=== PATIENT | female | born 1965 | race Caucasian/White ===

== ENCOUNTER 2018-04-23 08:30 | Emergency (ER) | payer BC ==
[2018-04-23 08:36] VITALS: BP 165/96; PULSE 99; RESP 18; TEMP 98.3
--- NOTE | 2018-04-23 08:47 | ED ---
General Adult HPI - General Chief complaint: Extremity Injury, Upper Stated complaint: Fell/shoulder injury Time Seen by Provider: 04/23/18 08:41 Source: patient, RN notes reviewed Mode of arrival: wheelchair Limitations: no limitations - History of Present Illness Initial comments: Patient is a 52-year-old female presenting to the emergency room today with complaint of a fall that occurred right p.m. last night. She states that she was sitting on the table for a long time she has history of peripheral neuropathy. She states she went to get up she lost her balance and fell down onto the left shoulder. Patient admits to pain locally to this area. Worse with certain movements. States did not hit her head. No loss consciousness. Denies any other complaints. Patient denies any recent fever, chills, shortness of breath, chest pain, back pain, abdominal pain, nausea or vomiting, headaches or visual changes, or any other complaints. - Related Data Allergies Allergy/AdvReac Type Severity Reaction Status Date / Time Milk Containing Products Allergy Rash/Hives Verified 04/23/18 08:37 [Dairy] Sulfa (Sulfonamide Allergy Rash/Hives Verified 04/23/18 08:37 Antibiotics) wheat AdvReac Rash/Hives Verified 04/23/18 08:37 Review of Systems ROS Statement: Those systems with pertinent positive or pertinent negative responses have been documented in the HPI. ROS Other: All systems not noted in ROS Statement are negative. Past Medical History Additional Past Medical History / Comment(s): ra neuropathy History of Any Multi-Drug Resistant Organisms: None Reported Past Surgical History: Section, Orthopedic Surgery Additional Past Surgical History / Comment(s): knee surg Past Psychological History: No Psychological Hx Reported Smoking Status: Never smoker Past Alcohol Use History: None Reported Past Drug Use History: None Reported General Exam - General Exam Comments Initial Comments: General: The patient is awake and alert, in no distress, and does not appear acutely ill. Neck: The neck is supple, there is no tenderness or JVD. Musculoskeletal: Patient does have tenderness over the superior and posterior aspect of the left shoulder. Her sensations are intact. Radial pulse 2+. Shows good range of motion of left elbow left wrist and hand. Strength unable to be assessed to the left shoulder as patient does not want to move it due to pain. Neurological: A&O x 3. CN II-XII intact, There are no obvious motor or sensory deficits. Coordination appears grossly intact. Speech is normal. Skin: Skin is warm and dry and no rashes or lesions are noted. Psychiatric: Normal mood and affect. Limitations: no limitations Course Vital Signs 04/23/18 08:33 Temperature 98.3 F Pulse Rate 99 Respiratory 18 Rate Blood Pressure 165/96 O2 Sat by Pulse 97 Oximetry Medical Decision Making - Medical Decision Making X-rays reviewed and does show a proximal humerus fracture. Results were discussed with the patient. Patient given arm sling here in emergency room. Advised follow-up with orthopedics over the next 2 days. Advised return if any symptoms increase or worsen. Disposition Clinical Impression: Proximal humerus fracture Disposition: HOME SELF-CARE Condition: Good Instructions: Arm Fracture in Adults (ED) Additional Instructions: Please use arm sling when up and moving around. Please follow-up with orthopedics over the next 2 days. Please return to emergency room if any symptoms increase or worsen or for any other concerns. Is patient prescribed a controlled substance at d/c from ED?: No Referrals: Otto Monge MD [Primary Care Provider] - 1-2 days Cleveland Vela DO [Doctor of Osteopathic Medicine] - 1-2 days Time of Disposition: 09:12
--- NOTE | 2018-04-23 08:58 | XR ---
EXAMINATION TYPE: XR shoulder complete LT DATE OF EXAM: 04/23/2018 CLINICAL HISTORY: Pain after fall injury last night. TECHNIQUE: Two views of the left shoulder are obtained. COMPARISON: None. FINDINGS: There is acute comminuted minimally displaced fracture through surgical neck of left proxi mal humerus shoulder. No greater than 1 cm displacement is identified. Evaluation is suboptimal witho ut dedicated 3 views to assess for trochanter involvement. The acromioclavicular and glenohumeral ayo nt spaces appear within normal limits. The visualized ribs are intact and unremarkable. IMPRESSION: There is acute comminuted minimally displaced fracture surgical neck of left proximal hu merus. (Initial encounter closed type post traumatic fracture)
== END 2018-04-23 09:34 | disposition home or self-care (01) ==
LOC: EC 08:30
DX: S42.212A Unspecified displaced fracture of surgical neck of left humerus, initial encounter for closed fracture (principal); Z98.890 Other specified postprocedural states; Z86.69 Personal history of other diseases of the nervous system and sense organs; Z88.2 Allergy status to sulfonamides; Z91.011 Allergy to milk products; Z91.018 Allergy to other foods; W18.39XA Other fall on same level, initial encounter
CPT/HCPCS: 99283

== ENCOUNTER → 2020-06-25 | Outpatient (CLI) | payer BC ==
--- NOTE | 2020-06-25 11:48 | CT ---
EXAMINATION TYPE: CT brain wo con DATE OF EXAM: 06/25/2020 COMPARISON: None HISTORY: 54-year-old female Slurred speech TECHNIQUE: Examination was done in axial plane without intravenous contrast. Coronal and sagittal r econstructions performed. CT DLP: 1115 mGycm Automated exposure control for dose reduction was used. FINDINGS: There is no evidence of acute intracranial hemorrhage, acute ischemic changes, mass, mass-effect, or extra-axial fluid collection. There is no effacement of cerebral sulci or basal subarachnoid cister ns. There is no hydrocephalus. There is no midline shift. Barrientos-white matter distinction is preserv ed. Relative cerebellar atrophy. Paranasal sinuses and mastoid air cells well pneumatized. Orbits and globes are intact. 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 IMPRESSION: No acute intracranial abnormality seen. Relative cerebellar atrophy. Findings maybe idiopathic. Other differential considerations include chronic phenytoin or alcohol use, certain hereditary cerebellar ataxias, and multiple system atrophy. Clinically correlate.
--- NOTE | 2020-06-25 12:16 | MR ---
EXAMINATION TYPE: MR lumbar spine wo con DATE OF EXAM: 06/25/2020 COMPARISON: 03/20/2014 HISTORY: Hx of RA, steadily loosing ability to walk TECHNIQUE: T1 and T2 axial and sagittal images of the lumbar spine are submitted. FINDINGS: There is no abnormal signal seen within the visualized spinal cord or paraspinal soft tissu es. There is a moderate to severe chronic compression fracture T12 with approximately 5% retropulsion but no spinal cord contact. At L1-2 there is no disc herniation or canal stenosis no degenerative disc disease. Neural foramina p atent. At L2-3 there is mild degenerative disc disease with broad-based disc bulging and mild effacement of thecal sac. Mild facet arthropathy. Neural foramina patent. No disc herniation or canal stenosis At L3-4 there is degenerative disc disease with circumferential disc bulging facet arthropathy and li gamentum flavum hypertrophy. Mild bilateral foraminal encroachment. No Canal stenosis. At L4-5 there is annular tear with broad-based disc bulging or protrusion. Facet arthropathy and liga mentum flavum hypertrophy with borderline to mild canal stenosis and mild bilateral foraminal encroac hment. At L5-S1 there is a focal central disc protrusion or small herniation mild effacement of thecal sac. Mild bilateral foraminal encroachment. There is degenerative disc disease and facet arthropathy. IMPRESSION: 1. Remote severe compression fracture T12 with 5% retropulsion. 2. Multilevel degenerative disc disease, facet arthropathy and ligamentum flavum hypertrophy. There i s multilevel disc bulging or protrusion with borderline to mild canal stenosis L4-L5. 3. More focal central disc protrusion or small herniation L5-S1 with mild effacement of thecal sac. T his is similar to the prior exam.
== END | disposition home or self-care (01) ==
LOC: RADCTMAIN 09:24
PROVIDERS: ATTEND Physician Assistant Medical
DX: R51 Headache (principal); M48.061 Spinal stenosis, lumbar region without neurogenic claudication; M51.27 Other intervertebral disc displacement, lumbosacral region; M51.36 Other intervertebral disc degeneration, lumbar region; M47.896 Other spondylosis, lumbar region; M62.81 Muscle weakness (generalized)
CPT/HCPCS: 70450; 72148

== ENCOUNTER → 2020-09-11 | Outpatient (CLI) | payer BC ==
--- NOTE | 2020-09-11 14:09 | MR ---
EXAMINATION TYPE: MR cspine/tspine wo con DATE OF EXAM: 09/11/2020 COMPARISON: MRI cervical spine February 07, 2014. MRI lumbar spine June 25, 2020. HISTORY: Neck pain, neurologic deficit, gait abnormality, poss cervical myelopathy, jareth lower extremi ty weakness, mid back pain TECHNIQUE: Multiplanar, multisequence imaging of cervical and thoracic spine are performed without co ntrast FINDINGS: C-SPINE: FINDINGS: Sagittal images of the cervical spine show the craniocervical junction to remain within nor mal limits. The cervical and upper thoracic spinal cord remains normal in caliber and signal. Stable grade 1 retrolisthesis C5 on C6. Stable moderate disc space narrowing at this level with mild to mod erate anterior spurring. The vertebral body and intravertebral disk heights otherwise remain normal. The bone marrow signal intensity is within normal limits. Axial images show the C2-C3 and C3-C4 levels to appear within normal limits. Axial images of the C4-C5 level shows central disc protrusion effacing the anterior thecal sac with a nnular tear, patent bilateral neural foramina, findings new from prior study. Axial images at C5-C6 level broad-based posterior disc protrusion effacing the anterior thecal sac an d causing [id number] right-sided neural foraminal narrowing due to right foraminal component, l eft-sided neural foramen is patent. No significant progression from prior. Axial images at C6-C7 level shows a focal central disc protrusion effacing anterior thecal sac on stelal ge 14, patent bilateral neural foramina. Findings new from prior. Axial images at C7-T1 level remain within normal limits. IMPRESSION: Spondylolisthesis and degenerative change C5-C6 levels fairly stable from prior. New disc herniations C4-C5 and C6-C7 levels noted. T-SPINE: Spinal cord shows normal caliber and signal as it courses the thoracic spine. Persistent moderate co mpression type fracture at T12 level with anterior and superior height loss, slight posterior retropu lsion of the superior L1 vertebra into the anterior spinal canal is redemonstrated . No significant c hange from recent MRI lumbar spine study. Vertebral body heights and alignment are otherwise satisfac tory in the thoracic spine. Bone marrow signal intensity shows some heterogeneity with small scattere d hemangiomas, persistent increased T1 and T2 signal in the T12 vertebra. Posterior disc herniation i s noted effacing the anterior thecal sac at T7-T8 and T10-T11 levels on sagittal image 7 for referenc e. Review of the axial images shows no significant additional spinal canal stenosis or neural foraminal narrowing at any thoracic level. Dependent gallstone suspected axial image 6. IMPRESSION: Stable moderate compression type fracture deformity T12 level presumed chronic. Multileve l small posterior disc herniations. Gallstones suspected.
== END | disposition home or self-care (01) ==
LOC: RADMRIMAIN 10:24
PROVIDERS: ATTEND Orthopaedic Surgery Orthopaedic Surgery of the Spine
DX: S22.089A Unspecified fracture of T11-T12 vertebra, initial encounter for closed fracture (principal); M51.24 Other intervertebral disc displacement, thoracic region
CPT/HCPCS: 72141; 72146

== ENCOUNTER → 2020-10-05 | Outpatient (CLI) | payer BC ==
--- NOTE | 2020-10-05 20:05 | BD ---
EXAMINATION TYPE: Axial Bone Density DATE OF EXAM: 10/05/2020 COMPARISON: NONE CLINICAL HISTORY: 55-year-old female postmenopausal screening Height: 64.5 IN Weight: 199 LBS FRAX RISK QUESTIONS: History of Fracture in Adulthood: LT SHOULDER AGE 53 Secondary Osteoporosis: Rheumatoid Arthritis: YES FOR 25 YEARS RISK FACTORS HISTORY OF: History of Wrist Fracture: YES LT AGE 6 Family History of Osteoporosis: MOTHER Active: MODERATE EXERCISE Diet low in dairy products/other sources of calcium: YES Postmenopausal woman: AGE 44 Take estrogen and/or progesterone medications: NOT NOW How long: TOOK CONTROL APPROX. 5 YEARS Frequent falls: FREQUENT FALLS DUE TO SIGNALS FROM BRAIN NOT RELAYING IT TO HER LEGS. CEREBELLUM ATR OPHY. MEDICATIONS: Additional Medications: CALCIUM, VIT D, ATORVASTATIN, LOSARTAN, RINVOQ, EXAM MEASUREMENTS: Bone mineral densitometry was performed using the [employer] System. Bone mineral density as measured about the Lumbar spine is: ----- L1-L4(G/cm2): 1.041 T Score Values are as follows: ----- L2: -1.5 ----- L3: -0.6 ----- L4: -1.0 ----- L1-L4: -1.2 Bone mineral density BASELINE Bone mineral density about the R hip (g/cm2): 0.889 Bone mineral density about the L hip (g/cm2): 0.908 T Score values are as follows: -----R Neck: -1.1 -----L Neck: -0.9 -----R Total: -0.8 -----L Total: -1.1 Bone mineral density BASELINE IMPRESSION: Osteopenia (T Score between -2.5 and -1). There is slightly increased risk of fracture and the patient may be considered for treatment. Re-Screen 2-5 years. NOTE: T-SCORE=SD OF THE YOUNG ADULT MEAN.
--- NOTE | 2020-10-07 08:55 | MM ---
Reason for exam: screening (asymptomatic). Last mammogram was performed 8 years and 10 months ago. History: Patient had first child at age 33. Family history of breast cancer in maternal cousin at age 48. Took hormonal contraceptives for 1 year beginning at age 42. Physical Findings: A clinical breast exam by your physician is recommended on an annual basis and results should be correlated with mammographic findings. MG 3D Screening Mammo W/Cad Bilateral CC and MLO view(s) were taken. Prior study comparison: December 12, 2011, CAD bilateral diagnostic mammogram. April 07, 2009, right breast mammogram dig work up. There are scattered fibroglandular densities. New asymmetric density posterior lateral left CC view shows muscle striations on 3D images suggesting pectoral muscle. Adjacent 7mm circumscribed nodule typical of a low axillary tail lymph node. 6 month follow up as a precautionary measure. No significant changes when compared with prior studies. ASSESSMENT: Probably benign, BI-RAD 3 RECOMMENDATION: Follow-up diagnostic mammogram of the left breast in 6 months.
== END | disposition home or self-care (01) ==
LOC: RADMAMWWP 14:52
PROVIDERS: ATTEND Family Medicine
DX: Z12.31 Encounter for screening mammogram for malignant neoplasm of breast (principal); M85.80 Other specified disorders of bone density and structure, unspecified site; M80.00XA Age-related osteoporosis with current pathological fracture, unspecified site, initial encounter for fracture
CPT/HCPCS: 77063; 77067; 77080

== ENCOUNTER 2021-09-22 11:13 | Emergency (ER) | payer BC ==
[2021-09-22 11:51] VITALS: RESP 18
--- NOTE | 2021-09-22 13:16 | XR ---
EXAMINATION TYPE: XR chest 2V DATE OF EXAM: 09/22/2021 COMPARISON: None HISTORY: Cough TECHNIQUE: Frontal and lateral views of the chest are obtained. FINDINGS: There is no focal air space opacity, pleural effusion, or pneumothorax seen. The cardiac silhouette size is within normal limits. The osseous structures are intact. IMPRESSION: No acute cardiopulmonary process.
--- NOTE | 2021-09-22 13:22 | ED ---
URI HPI - General Chief Complaint: Upper Respiratory Infection Stated Complaint: Covid symptoms Time Seen by Provider: 09/22/21 12:08 Source: patient, RN notes reviewed Mode of arrival: ambulatory Limitations: no limitations - History of Present Illness Initial Comments: 56-year-old female presents emergency Department with chief complaint of COVID- 19 teen symptoms. Patient states she's had recent exposure she's had cough and cold-like symptoms for last 2 days. No chest pain no exact shortness of breath. Patient at that she's had some bodyaches congestion. Patient is immunocompromised. She has not had prior vaccine. - Related Data Allergies Allergy/AdvReac Type Severity Reaction Status Date / Time Milk Containing Products Allergy Rash/Hives Verified 09/22/21 11:51 [Dairy] Sulfa (Sulfonamide Allergy Rash/Hives Verified 09/22/21 11:51 Antibiotics) wheat AdvReac Rash/Hives Verified 09/22/21 11:51 Review of Systems ROS Statement: Those systems with pertinent positive or pertinent negative responses have been documented in the HPI. ROS Other: All systems not noted in ROS Statement are negative. Past Medical History Additional Past Medical History / Comment(s): ra neuropathy, cerebelar ataxia. History of Any Multi-Drug Resistant Organisms: None Reported Past Surgical History: Section, Orthopedic Surgery Additional Past Surgical History / Comment(s): knee surg Past Psychological History: No Psychological Hx Reported Smoking Status: Never smoker Past Alcohol Use History: None Reported Past Drug Use History: None Reported General Exam Limitations: no limitations General appearance: alert, in no apparent distress Head exam: Present: atraumatic, normocephalic, normal inspection Eye exam: Present: normal appearance, PERRL, EOMI. Absent: scleral icterus, conjunctival injection, periorbital swelling ENT exam: Present: normal exam, normal oropharynx, mucous membranes moist, TM's normal bilaterally Neck exam: Present: normal inspection, full ROM. Absent: tenderness, meningismus, lymphadenopathy Respiratory exam: Present: normal lung sounds bilaterally. Absent: respiratory distress, wheezes, rales, rhonchi, stridor Cardiovascular Exam: Present: regular rate, normal rhythm, normal heart sounds. Absent: systolic murmur, diastolic murmur, rubs, gallop, clicks Course Vital Signs 09/22/21 11:48 Temperature 99.2 F Pulse Rate 102 H Respiratory 18 Rate Blood Pressure 156/92 O2 Sat by Pulse 98 Oximetry Medical Decision Making - Medical Decision Making patient's x-ray is negative. Patient is positive for COVID-19 patient will receive monoclonal antibodies and discharged in stable condition return parameters were discussed. - Lab Data Lab Results 09/22/21 Range/Units 11:53 Coronavirus (PCR) Detected A (Not Detectd) Disposition Clinical Impression: COVID-19 Disposition: HOME SELF-CARE Condition: Stable Instructions (If sedation given, give patient instructions): Coronavirus Disease 2019 (COVID-19) Additional Instructions: Please return to the Emergency Department if symptoms worsen or any other c oncerns. Is patient prescribed a controlled substance at d/c from ED?: No Referrals: Jan Duarte DO [Primary Care Provider] - 1-2 days Time of Disposition: 13:21
[2021-09-22] MEDS ORDERED: BAMLANIVIMAB (EUA) 700 MG, ETESEVIMAB (EUA) 1,400 MG in SODIUM CHLORIDE 0.9% 50 ML IVPB ONE (13:45)
[2021-09-22] MEDS ORDERED: SODIUM CHLORIDE 0.9% 50 ML IVPB ONE (13:45)
[2021-09-22 16:25] VITALS: BP 171/98; PULSE 91; TEMP 99
== END 2021-09-22 16:25 | disposition home or self-care (01) ==
LOC: EC 11:13
DX: U07.1 COVID-19 (principal); Z88.2 Allergy status to sulfonamides
CPT/HCPCS: 99283; 87635; 71046; J3490

== ENCOUNTER 2022-05-25 11:21 | Inpatient (IN) | payer BC ==
[2022-05-25] MEDS ORDERED: HYDROmorphone 1 MG/ML 1 ML SYRINGE IVP STA (11:25)
[2022-05-25] MEDS ORDERED: ONDANSETRON 4 MG/2 ML VIAL IVP STA (11:25)
[2022-05-25] MEDS ORDERED: PROPOFOL 10 MG/ML 20 ML VIAL IV STA (11:26)
[2022-05-25] MEDS ORDERED: SODIUM CHLORIDE 0.9% 500 ML 500 ML IV STA (11:26)
--- NOTE | 2022-05-25 11:58 | XR ---
EXAMINATION TYPE: XR ankle limited LT DATE OF EXAM: 05/25/2022 COMPARISON: NONE HISTORY: Pain TECHNIQUE: 2 views of the left ankle are submitted for evaluation. FINDINGS: Trimalleolar fracture with displaced patellar component distal fibular component and newspaper delivery counselor ior malleolar component. There is disruption of the ankle mortise medially. Soft tissue deformity and swelling noted. IMPRESSION: 1. Trimalleolar fracture with disruption of the ankle mortise.
--- NOTE | 2022-05-25 12:25 | ED ---
Lower Extremity Injury HPI <Taj Chong - Last Filed: 05/25/22 12:25> - General Source: patient, RN notes reviewed Mode of arrival: EMS Limitations: no limitations <Jan Pearson - Last Filed: 05/25/22 15:30> - General Chief Complaint: Extremity Injury, Lower Stated Complaint: Fall Time Seen by Provider: 05/25/22 11:23 - History of Present Illness Initial Comments: This a 48-year-old female presents emergency Department chief complaint of right ankle injury. Patient states she was walking across states that she tripped. Patient states she felt her ankle pop. Patient noted her right ankle deformity. No head injury no other injuries noted. Denies any blood thinners. (Jan Pearson) - Related Data Allergies Allergy/AdvReac Type Severity Reaction Status Date / Time Milk Containing Products Allergy Rash/Hives Verified 05/25/22 11:31 [Dairy] Sulfa (Sulfonamide Allergy Rash/Hives Verified 05/25/22 11:31 Antibiotics) wheat AdvReac Rash/Hives Verified 05/25/22 11:31 Review of Systems ROS Other: All systems not noted in ROS Statement are negative. <Taj Chong - Last Filed: 05/25/22 12:25> ROS Other: All systems not noted in ROS Statement are negative. <Jan Pearson - Last Filed: 05/25/22 15:30> ROS Statement: Those systems with pertinent positive or pertinent negative responses have been documented in the HPI. Past Medical History Past Medical History: Hypertension, Rheumatoid Arthritis (RA) Additional Past Medical History / Comment(s): ra neuropathy, cerebelar ataxia. History of Any Multi-Drug Resistant Organisms: None Reported Past Surgical History: Section, Orthopedic Surgery Additional Past Surgical History / Comment(s): knee surg Past Psychological History: No Psychological Hx Reported Smoking Status: Never smoker Past Alcohol Use History: None Reported Past Drug Use History: None Reported <Jan Pearson - Last Filed: 05/25/22 15:30> General Exam Limitations: no limitations General appearance: alert, in no apparent distress Head exam: Present: atraumatic, normocephalic, normal inspection Eye exam: Present: normal appearance, PERRL, EOMI. Absent: scleral icterus, conjunctival injection, periorbital swelling ENT exam: Present: normal exam, mucous membranes moist Neck exam: Present: normal inspection, full ROM. Absent: tenderness, meningismus, lymphadenopathy Respiratory exam: Present: normal lung sounds bilaterally. Absent: respiratory distress, wheezes, rales, rhonchi, stridor Cardiovascular Exam: Present: regular rate, normal rhythm, normal heart sounds. Absent: systolic murmur, diastolic murmur, rubs, gallop, clicks Extremities exam: Present: other (Right ankle there is obvious deformity, tenting of the skin on the right there is no laceration no puncture wound noted, pulses are palpable. No proximal tib-fib tenderness) <Jan Pearson - Last Filed: 05/25/22 15:30> Course Vital Signs 05/25/22 05/25/22 05/25/22 11:25 11:55 12:00 Temperature 98 F Pulse Rate 101 H 88 86 Respiratory 19 15 15 Rate Blood Pressure 170/105 191/117 162/101 O2 Sat by Pulse 99 100 99 Oximetry 05/25/22 12:10 Temperature Pulse Rate 86 Respiratory 14 Rate Blood Pressure 168/107 O2 Sat by Pulse 100 Oximetry Procedures - Procedural Sedation Procedural Sedation Start Time: 11:55 Procedural Sedation Stop Time: 12:25 Indications: fracture/dislocation reduction ASA Class: II Mallampati Airway Score: 2 Preparation: aquaculture and fisheries professor applied, pulse oximeter, capnometry used, supplemental O2 applied IV Propofol Dose (mgs): 70 Complications: none Patient Tolerated Procedure: well, no complications <Taj Chong - Last Filed: 05/25/22 12:25> - [place] Protocol (Time Out) Procedure Performed:: Moderate sedation with ankle relocation Performing Provider: Taj Chong Nurse: Jayant Mccallum Respiratory Therapist: Keely Gandhi Patient Identification (2 identifiers required): Verbal, Arm Band, Name, Birthdate Patient/Legal Electrostatic Painter has Confirmed: Identity, Site, Procedure, Consent Site: Left ankle Site Marked: Yes Site Verified With Patient/Guardian: Yes Final Confirmation: Procedure - Orthopedic Fracture Reduction Fracture #1 Consent Obtained: verbal consent Side: right Fracture Reduction Location: tibia, fibula Analgesia: procedural sedation Technique: direct manipulation, traction/counter-traction Post Reduction X-rays Demonstrate: acceptable reduction Post-Reduction Neuro Exam: intact Post-Reduction Vascular Exam: intact Splint Applied: Yes Patient Tolerated Procedure: well - Orthopedic Splinting/Casting Injury #1 Side: right Lower Extremity Injury Location: short leg, ankle Lower Extremity Immobilizer: posterior splint, stirrup splint, synthetic pre- padded splint <Jan Pearson - Last Filed: 05/25/22 15:30> Medical Decision Making <Jan Pearson - Last Filed: 05/25/22 15:30> - Medical Decision Making Patient is unable to use crutches, unable to get around with walker. Patient be admitted for rehab, treatment of right ankle trimalleolar fracture. (Jan Pearson) Disposition <Taj Chong - Last Filed: 05/25/22 12:25> <Jan Pearson - Last Filed: 05/25/22 15:30> Clinical Impression: Closed right trimalleolar fracture Disposition: ADMITTED IP TO THIS HOSP Condition: Fair Referrals: Jan Duarte DO [Primary Care Provider] - 1-2 days
--- NOTE | 2022-05-25 12:27 | XR ---
EXAMINATION TYPE: XR ankle limited RT DATE OF EXAM: 05/25/2022 COMPARISON: NONE HISTORY: Pain TECHNIQUE: 2 Post reduction views of the left ankle COMPARISON: None. FINDINGS: Overlying cast material is noted. This does obscure fine bony detail. There is improved ali gnment of the previously described trimalleolar fracture and improved ankle mortise alignment. IMPRESSION: As above
[2022-05-25] MEDS ORDERED: NALOXONE 0.4 MG/ML 1 ML VIAL IV PRN (15:31)
[2022-05-25] MEDS ORDERED: ONDANSETRON 4 MG/2 ML VIAL IVP PRN (15:31)
[2022-05-25] MEDS: HYDROcodone/APAP 5-325MG 1 EACH TAB PO PRN ×2 (19:37→23:46)
--- NOTE | 2022-05-25 20:23 | P.HPOR ---
History of Present Illness H&P Date: 05/25/22 This patient is a 56- year old female with a past medical history of rheumatoid arthritis, cerebellar ataxia that presented to [facility] emergency department earlier today via EMS with complaints of left ankle pain and deformity following a ground level fall. Patient states she was walking in a parking lot and twisted her ankle. She noticed immediate deformity of the ankle and EMS was called. Upon presentation to the emergency department, x-rays of the left ankle revealed a trimalleolar fracture dislocation. Her ankle was reduced and splinted in the emergency department. There was concern for patient's safety returning home, therefore she was admitted under the care of Dr. Aquino for rehab placement. Internal medicine was consulted for medical management. Patient is examined bedside this afternoon. Patient states her left ankle pain is controlled at this this time. She denies additional injuries or complaints. Denies head injury. She states she ambulates with a walker at baseline due to her cerebellar ataxia. Patient denies numbness or tingling of the left lower extremity. Vital signs stable. Past Medical History Past Medical History: Hypertension, Rheumatoid Arthritis (RA) Additional Past Medical History / Comment(s): Neuropathy, cerebelar ataxia History of Any Multi-Drug Resistant Organisms: None Reported Past Surgical History: Section, Orthopedic Surgery Additional Past Surgical History / Comment(s): Knee surgery, shoulder surgery Past Anesthesia/Blood Transfusion Reactions: No Reported Reaction Past Psychological History: No Psychological Hx Reported Smoking Status: Never smoker Past Alcohol Use History: None Reported Past Drug Use History: None Reported Medications and Allergies Home Medications Medication Instructions Recorded Confirmed Type Atorvastatin [Lipitor] 20 mg PO DAILY 05/25/22 05/25/22 History Cholecalciferol [Vitamin D3 (25 25 mcg PO DAILY 05/25/22 05/25/22 History Mcg = 1000 Iu)] Loratadine 10 mg PO DAILY 05/25/22 05/25/22 History Losartan [Cozaar] 25 mg PO DAILY 05/25/22 05/25/22 History Montelukast [Singulair] 10 mg PO DAILY 05/25/22 05/25/22 History Multivitamins, Thera [Multivitamin 1 tab PO HS 05/25/22 05/25/22 History (formulary)] Omeprazole Magnesium [PriLOSEC OTC] 20 mg PO DAILY 05/25/22 05/25/22 History Turmeric Root Extract [Turmeric] 500 mg PO DAILY 05/25/22 05/25/22 History Upadacitinib [Rinvoq] 15 mg PO DAILY 05/25/22 05/25/22 History diphenhydrAMINE [Benadryl] 25 mg PO HS 05/25/22 05/25/22 History Allergies Allergy/AdvReac Type Severity Reaction Status Date / Time Milk Containing Products Allergy Rash/Hives Verified 05/25/22 16:53 [Dairy] Sulfa (Sulfonamide Allergy Rash/Hives Verified 05/25/22 16:53 Antibiotics) wheat AdvReac Rash/Hives Verified 05/25/22 16:53 Physical Examination On examination, patient is sitting up in bed in no apparent distress. She is alert and orientated x3. Her is bedside. Her head appears normocephalic and atraumatic. Her breathing appears non-labored. On inspection of the bilateral upper extremities, there are no obvious deformities or signs of trauma. On inspection of her right lower extremity, no obvious deformities or signs of trauma. On inspection of the left lower extremity, there is a short leg splint in place. Visible portion of the toes are warm and well perfused with brisk capillary refill. Patient is able to wiggle toes appropriately. No pain with PROM of the toes. No pain with palpation of the left knee, thigh, hip. No pain with PROM of the left hip. Results Left ankle x-ray 05/25/22: Trimalleolar ankle fracture dislocation Assessment and Plan Assessment: Left trimalleolar fracture dislocation Plan: - The clinical and imaging findings were discussed with the patient. The patient was discussed with Dr. Aquino. Patient will ultimately require surgical fixation of her left ankle fracture, although we are not planning surgery during this hospital stay. We will wait for soft tissue swelling to resolve before planning surgery. Case management is consulted for discharge planning. Patient will require rehab placement at discharge. - Strict non-weight bearing left lower extremity. Physical therapy consulted for gait and balance training. - Ice, elevation left lower extremity for swelling control. Pain management as needed. - Keep splint intact. We will plan to change her splint tomorrow morning. - Internal medicine consulted for medical management.
[2022-05-25] MEDS: diphenhydrAMINE 25 MG CAP PO SCH (22:04)
--- NOTE | 2022-05-26 01:06 | P.CONS ---
History of Present Illness - Reason for Consult Consult date: 05/25/22 medical management - Chief Complaint fall - History of Present Illness 56 year old female with cerebellar ataxia. hypertension patient is at her baseline of health, today sustained a fall in a parking lot, and heard a pop in her foot, and immediately was painful and unable to bear weight. she was brought to the hospital and found to have trimalleolar fracture and dislocation. patient known to have cerebellar ataxia with difficulty walking. ortho evaluated the patient and recommended splinting and monitoring for few days until swelling goes down , no plans for immediate surgical intervention otherwise patient denies any chest pain trouble breathing , fever, chills. abd pain nausea or vomiting, she reports pain well controlled , denies any numbness or tingling in her foot. Review of Systems Pertinent positives as noted in HPI. All other systems were reviewed and are negative Past Medical History Past Medical History: Hypertension, Rheumatoid Arthritis (RA) Additional Past Medical History / Comment(s): Neuropathy, cerebelar ataxia History of Any Multi-Drug Resistant Organisms: None Reported Past Surgical History: Section, Orthopedic Surgery Additional Past Surgical History / Comment(s): Knee surgery, shoulder surgery Past Anesthesia/Blood Transfusion Reactions: No Reported Reaction Past Psychological History: No Psychological Hx Reported Smoking Status: Never smoker Past Alcohol Use History: None Reported Past Drug Use History: None Reported - Past Family History family Family Medical History: No Reported History Medications and Allergies Home Medications Medication Instructions Recorded Confirmed Type Atorvastatin [Lipitor] 20 mg PO DAILY 05/25/22 05/25/22 History Cholecalciferol [Vitamin D3 (25 25 mcg PO DAILY 05/25/22 05/25/22 History Mcg = 1000 Iu)] Loratadine 10 mg PO DAILY 05/25/22 05/25/22 History Losartan [Cozaar] 25 mg PO DAILY 05/25/22 05/25/22 History Montelukast [Singulair] 10 mg PO DAILY 05/25/22 05/25/22 History Multivitamins, Thera [Multivitamin 1 tab PO HS 05/25/22 05/25/22 History (formulary)] Omeprazole Magnesium [PriLOSEC OTC] 20 mg PO DAILY 05/25/22 05/25/22 History Turmeric Root Extract [Turmeric] 500 mg PO DAILY 05/25/22 05/25/22 History Upadacitinib [Rinvoq] 15 mg PO DAILY 05/25/22 05/25/22 History diphenhydrAMINE [Benadryl] 25 mg PO HS 05/25/22 05/25/22 History Allergies Allergy/AdvReac Type Severity Reaction Status Date / Time Milk Containing Products Allergy Rash/Hives Verified 05/25/22 16:53 [Dairy] Sulfa (Sulfonamide Allergy Rash/Hives Verified 05/25/22 16:53 Antibiotics) wheat AdvReac Rash/Hives Verified 05/25/22 16:53 Physical Exam Vitals: Vital Signs Temp Pulse Pulse Resp BP BP Pulse Ox 05/25/22 20:17 98.3 F 98 15 140/74 97 05/25/22 17:59 98.4 F 97 18 171/93 100 05/25/22 16:09 81 16 164/85 97 05/25/22 12:10 86 14 168/107 100 05/25/22 12:00 86 15 162/101 99 05/25/22 11:55 88 15 191/117 100 05/25/22 11:25 98 F 101 H 19 170/105 99 Intake and Output 05/25/22 05/25/22 05/26/22 14:59 22:59 06:59 Other: Voiding Method Bedpan # Voids 1 Weight 97.522 kg 97.522 kg Constitutional: No acute distress, conversant, pleasant Eyes: Anicteric sclerae, moist conjunctiva, Pupils equal round reactive to light ENMT: NC/AT Oropharynx clear, no erythema, or exudates Neck: Supple, FROM, no masses, or JVD No carotid bruits No thyromegaly Lungs: Clear to auscultation Clear to percussion Normal respiratory effort, no accessory muscle use Cardiovascular: Heart regular in rate and rhythm, No murmurs, gallops, or rubs No peripheral edema Abdominal: Soft Nontender, no guarding, rebound or rigidity Abdomen moving with respiration Normoactive bowel sounds No hepatomegaly, No splenomegaly No palpable mass No abdominal wall hernia noted Skin: Normal temperature, tone, texture, turgor No induration No subcutaneous nodules No rash, lesions No ulcers Extremities: No digital cyanosis No clubbing Pedal pulses intact right foot, left foot in splint capillary refill immediate left foot Radial pulses intact and symmetrical No calf tenderness Psychiatric: Alert and oriented to person, place and time Appropriate affect fair judgement Neuro Muscles Strength 5/5 in bilateral upper extremity , and 4/5 in bilateral lower extrmity , limited exam over left leg due to ankle fracture Sensation to light touch grossly present throughout Cranial nerves II-XII grossly intact No focal sensory deficits Lymphatics: no palpable cervical or supraclavicular , or inguinal lymph nodes Assessment and Plan Assessment: accidental fall resulting in trimalleolar fracture and dislocation of the left ankle , management per ortho splint pain control chronic conditions RA cerebellar ataxia hypertension , controlled ,r esume losartan check CBC and BMP in AM DVT PPX heparin sc tid Full code Thank you for allowing us to participate in the care of this patient. Do not hesitate to contact us with questions. Someone can be reached from the [facility] hospitalist group at all hours of the day at [phone].
[2022-05-26] MEDS: MONTELUKAST 10 MG TAB PO SCH (08:01)
[2022-05-26] MEDS: ATORVASTATIN 20 MG TAB PO SCH (08:01)
[2022-05-26] MEDS: LOSARTAN 25 MG TAB PO SCH (08:01)
[2022-05-26] MEDS: LORATADINE 10 MG TAB PO SCH (08:02)
[2022-05-26 10:46] LABS: Basophils # (A) 0.03 X 10*3/uL (0.00-0.10); Basophils % (A) 0.5 %; Eosinophils # (A) 0.02 X 10*3/uL (0.04-0.35); Eosinophils % (A) 0.3 %; HCT 38.1 % (37.2-46.3); HGB 12.2 g/dL (12.0-15.0); Immature Grans, Automated 0.3 %; Lymphocytes # (A) 1.13 X 10*3/uL (0.90-5.00); Lymphocytes % (A) 17.2 %; MCH 30.8 pg (27.0-32.0); MCV 96.2 fL (80.0-97.0); Monocytes # (A) 0.78 X 10*3/uL (0.20-1.00); Monocytes % (A) 11.9 %; NRBC Per 100 WBC 0 /100 WBCS (0.0-0.0); Neutrophils # (A) 4.59 X 10*3/uL (1.80-7.70); Neutrophils % (A) 69.8 %; Platelet Count 309 X 10*3/uL (140-440); RBC 3.96 X 10*6/uL (4.10-5.20); WBC 6.57 X 10*3/uL (4.50-10.00)
[2022-05-26 10:57] LABS: African American GFR (CKD) 81.7 (60.0-200.0); Anion Gap 13.2 mmol/L (10.00-18.00); BUN/Creat Ratio 12.22 Ratio (12.00-20.00); Calcium 9.2 mg/dL (8.7-10.3); Carbon Dioxide 21.8 mmol/L (20.0-27.5); Non-African American GFR(CKD) 70.5 (60.0-200.0)
--- NOTE | 2022-05-26 11:31 | P.PN ---
Subjective Progress Note Date: 05/26/22 This patient is a 56- year old female who sustained left trimalleolar ankle fracture dislocation on 05/25/22. Patient was admitted under the care of orthopedic surgery for rehab placement. Patient is examined bedside this morning. She states the pain in her left ankle is well-controlled. She denies numbness or tingling of the left lower extremity. Vital signs stable. Objective - Vital Signs Vital signs: Vital Signs Temp 98.5 F 05/26/22 07:47 Pulse 96 05/26/22 07:47 Resp 17 05/26/22 01:27 BP 157/88 05/26/22 07:47 Pulse Ox 93 L 05/26/22 07:47 FiO2 Intake & Output 05/25/22 05/26/22 05/26/22 18:59 06:59 18:59 Intake Total 1080 Balance 1080 Weight 97.522 kg 97.522 kg Intake: Oral 1080 Other: Voiding Method Bedpan Bedpan # Voids 1 - Exam On examination, patient is sitting up in bed in no apparent distress. She is alert and orientated x3. On inspection of the left lower extremity, there is a short leg splint in place. Splint is taken down and reveals mild swelling of the ankle. No open wounds. Foot is warm and well perfused. Toes have brisk capillary refill. She is able to wiggle toes appropriately. New well-padded bulky Chong splint placed bedside today. - Labs CBC & Chem 7: 05/26/22 07:15 05/26/22 07:15 Labs: Abnormal Lab Results - Last 24 Hours (Table) 05/26/22 Range/Units 07:15 RBC 3.96 L (4.10-5.20) X 10*6/uL Eosinophils # 0.02 L (0.04-0.35) X 10*3/uL Assessment and Plan Assessment: Left trimalleolar fracture dislocation Plan: - No surgical intervention planned during this hospital stay. - Strict non-weight bearing left lower extremity. Keep bulky Chong splint in place. - Keep left ankle elevated for swelling control. - Pain management as needed. - Internal medicine consulted for discharge planning. - Anticipate discharge to rehab within next 24-48 hours.
[2022-05-26] MEDS: HYDROcodone/APAP 5-325MG 1 EACH TAB PO PRN ×2 (12:42→20:08)
--- NOTE | 2022-05-26 16:03 | P.PN ---
Subjective Progress Note Date: 05/26/22 Principal diagnosis: Left ankle pain Patient was seen and examined. No acute events overnight. Patient reports well-controlled pain in her left ankle. Currently on [place] for pain control. Plans for rehab. No surgical intervention indicated by orthopedic surgery. Objective - Vital Signs Vital signs: Vital Signs Temp 97.8 F 05/26/22 14:00 Pulse 97 05/26/22 14:00 Resp 17 05/26/22 01:27 BP 142/84 05/26/22 14:00 Pulse Ox 98 05/26/22 14:00 FiO2 Intake & Output 05/25/22 05/26/22 05/26/22 18:59 06:59 18:59 Intake Total 1080 Balance 1080 Weight 97.522 kg 97.522 kg Intake: Oral 1080 Other: Voiding Method Bedpan Bedpan # Voids 1 - Exam General: [non toxic], [no distress], [appears at stated age] Derm: [warm], [dry] Head: [atraumatic], [normocephalic], [symmetric] Eyes: [EOMI], [no lid lag], [anicteric sclera] Mouth: [no lip lesion], [mucus membranes moist] Cardiovascular: [S1S2 reg], [no murmur] Lungs: [CTA bilateral], [no rhonchi, no rales] , [no accessory muscle use] Ext: [no gross muscle atrophy], [no edema], [left foot and ankle casted] Neuro: [no focal neuro deficits] Psych: [Alert], [oriented], [appropriate affect] - Labs CBC & Chem 7: 05/26/22 07:15 05/26/22 07:15 Labs: Abnormal Lab Results - Last 24 Hours (Table) 05/26/22 Range/Units 07:15 RBC 3.96 L (4.10-5.20) X 10*6/uL Eosinophils # 0.02 L (0.04-0.35) X 10*3/uL Assessment and Plan Assessment: Accidental fall resulting in trimalleolar fracture and dislocation of the left ankle Management per ortho. Splint. Pain control. Plans for rehab tomorrow. PT and OT consulted. Chronic conditions: RA Cerebellar ataxia Hypertension Restart home medications. Heparin for DVT prophylaxis. FULL CODE. Thank you for allowing us to participate in the care of this patient. Do not hesitate to contact us with questions. Someone can be reached from the [facility] hospitalist group at all hours of the day at [phone].
[2022-05-26] MEDS: diphenhydrAMINE 25 MG CAP PO SCH (20:52)
[2022-05-27] MEDS: HYDROcodone/APAP 5-325MG 1 EACH TAB PO PRN ×4 (02:43→21:58)
[2022-05-27] MEDS: ATORVASTATIN 20 MG TAB PO SCH (08:47)
[2022-05-27] MEDS: LOSARTAN 25 MG TAB PO SCH (08:48)
[2022-05-27] MEDS: MONTELUKAST 10 MG TAB PO SCH (08:48)
[2022-05-27] MEDS: LORATADINE 10 MG TAB PO SCH (08:48)
--- NOTE | 2022-05-27 12:03 | P.PN ---
Subjective Progress Note Date: 05/27/22 Principal diagnosis: Left ankle pain Patient was seen and examined. No acute events overnight. Patient reports well-controlled pain in her left ankle. Currently on [place] for pain control. Patient states she cant afford rehab due to high copay, she would like to go home. No surgical intervention indicated by orthopedic surgery. Objective - Vital Signs Vital signs: Vital Signs Temp 98.0 F 05/27/22 08:00 Pulse 108 H 05/27/22 08:00 Resp 16 05/27/22 02:00 BP 138/89 05/27/22 08:00 Pulse Ox 94 L 05/27/22 08:00 FiO2 Intake & Output 05/26/22 05/27/22 05/27/22 18:59 06:59 18:59 Output Total 800 Balance -800 Output: Urine 800 Other: Voiding Method Bedpan External Catheter External Catheter # Voids 2 - Exam General: [non toxic], [no distress], [appears at stated age] Derm: [warm], [dry] Head: [atraumatic], [normocephalic], [symmetric] Eyes: [EOMI], [no lid lag], [anicteric sclera] Mouth: [no lip lesion], [mucus membranes moist] Cardiovascular: [S1S2 reg], [no murmur] Lungs: [CTA bilateral], [no rhonchi, no rales] , [no accessory muscle use] Ext: [no gross muscle atrophy], [no edema], [left foot and ankle casted] Neuro: [no focal neuro deficits] Psych: [Alert], [oriented], [appropriate affect] - Labs CBC & Chem 7: 05/26/22 07:15 05/26/22 07:15 Assessment and Plan Assessment: Accidental fall resulting in trimalleolar fracture and dislocation of the left ankle Management per ortho. Splint. Pain control. Possible discharge home today. PT and OT consulted. Chronic conditions: RA Cerebellar ataxia Hypertension Restart home medications. Heparin for DVT prophylaxis. FULL CODE. Thank you for allowing us to participate in the care of this patient. Do not hesitate to contact us with questions. Someone can be reached from the [facility] hospitalist group at all hours of the day at [phone].
--- NOTE | 2022-05-27 16:19 | P.PN ---
Subjective Progress Note Date: 05/27/22 This patient is a 56- year old female who sustained left trimalleolar ankle fracture dislocation on 05/25/22. Patient was admitted under the care of orthopedic surgery for rehab placement. Patient is examined bedside this morning. Patient was admitted for rehab placement, although upon evaluation by case management, rehab cost is very high and patient cannot afford this. Patient is requesting surgery be done prior to discharge. Patient states her new splint is very comfortable. Her pain in the ankle is well-controlled. Patient is doing well today with no complaints. She denies numbness or tingling of the left lower extremity. Vital signs stable. Objective - Vital Signs Vital signs: Vital Signs Temp 99.1 F 05/27/22 13:41 Pulse 112 H 05/27/22 13:41 Resp 16 05/27/22 02:00 BP 115/82 05/27/22 13:41 Pulse Ox 95 05/27/22 13:41 FiO2 Intake & Output 05/26/22 05/27/22 05/27/22 18:59 06:59 18:59 Output Total 800 Balance -800 Output: Urine 800 Other: Voiding Method Bedpan External Catheter External Catheter # Voids 2 - Exam On examination, patient is sitting up in bed in no apparent distress. She is alert and orientated x3. On inspection of the left lower extremity, there is a well-padded bulky Chong splint in place that is clean, dry, intact. Foot is warm and well perfused. Toes have brisk capillary refill. She is able to wiggle toes appropriately. No pain with PROM of the toes. - Labs CBC & Chem 7: 05/26/22 07:15 05/26/22 07:15 Assessment and Plan Assessment: Left trimalleolar fracture dislocation Plan: - Patient cannot afford rehab and is requesting surgery be done prior to discharge. This was discussed with Dr. Aquino. We will attempt to plan for surgical intervention on Monday05/30/22 if her swelling has subsided enough to proceed with surgery. Patient will remain inpatient over the weekend. We will taken her splint down Monday and re-assess swelling. - Strict non-weight bearing left lower extremity. Keep bulky Chong splint in place. - Aggressive elevation and ice to left ankle for swelling control. - Pain management as needed. - Internal medicine consulted for medical management. - Will plan for OR Monday.
[2022-05-27] MEDS: diphenhydrAMINE 25 MG CAP PO SCH (21:58)
[2022-05-28] MEDS: LORATADINE 10 MG TAB PO SCH (07:52)
[2022-05-28] MEDS: ATORVASTATIN 20 MG TAB PO SCH (07:52)
[2022-05-28] MEDS: LOSARTAN 25 MG TAB PO SCH (07:52)
[2022-05-28] MEDS: MONTELUKAST 10 MG TAB PO SCH (07:52)
[2022-05-28] MEDS: HYDROcodone/APAP 5-325MG 1 EACH TAB PO PRN ×3 (08:55→23:04)
--- NOTE | 2022-05-28 09:37 | P.PN ---
Subjective Progress Note Date: 05/28/22 Principal diagnosis: Left trimalleolar fracture This patient is a 56- year old female who sustained left trimalleolar ankle fracture dislocation on 05/25/22. Patient was admitted under the care of orthopedic surgery for rehab placement. Patient is examined bedside this morning. Patient was admitted for rehab placement, although upon evaluation by case management, rehab cost is very high and patient cannot afford this. Patient is requesting surgery be done prior to discharge. Patient states her new splint is very comfortable. Her pain in the ankle is well-controlled. Patient is doing well today with no complaints. She denies numbness or tingling of the left lower extremity. Vital signs stable. Objective - Vital Signs Vital signs: Vital Signs Temp 98.8 F 05/28/22 07:47 Pulse 100 05/28/22 07:47 Resp 18 05/28/22 07:47 BP 154/85 05/28/22 07:47 Pulse Ox 95 05/28/22 07:49 FiO2 Intake & Output 05/27/22 05/28/22 05/28/22 18:59 06:59 18:59 Output Total 950 450 Balance -950 -450 Output: Urine 950 450 Other: Voiding Method External Catheter External Catheter - Exam On examination, patient is sitting up in bed in no apparent distress. She is alert and orientated x3. On inspection of the left lower extremity, there is a well-padded bulky Chong splint in place that is clean, dry, intact. Foot is warm and well perfused. Toes have brisk capillary refill. She is able to wiggle toes appropriately. No pain with PROM of the toes. - Labs CBC & Chem 7: 05/26/22 07:15 05/26/22 07:15 Assessment and Plan (1) Left trimalleolar fracture Current Visit: Yes Status: Acute Code(s): S82.852A - DISPLACED TRIMALLEOLAR FRACTURE OF LEFT LOWER LEG, INIT SNOMED Code(s): 122328347 Plan: - Patient cannot afford rehab and is requesting surgery be done prior to discharge. This was discussed with Dr. Aquino. We will attempt to plan for surgical intervention on Monday05/30/22 if her swelling has subsided enough to proceed with surgery. Patient will remain inpatient over the weekend. We will taken her splint down Monday and re-assess swelling. - Strict non-weight bearing left lower extremity. Keep bulky Chong splint in place. - Aggressive elevation and ice to left ankle for swelling control. - Pain management as needed. - Internal medicine consulted for medical management. - Will plan for OR Monday.
--- NOTE | 2022-05-28 18:17 | P.PN ---
Subjective Progress Note Date: 05/28/22 Principal diagnosis: Trimalleolar fracture Patient with HTN, ankle fracture awaiting possible surgery on Monday Objective - Vital Signs Vital signs: Vital Signs Temp 99.2 F 05/28/22 17:40 Pulse 110 H 05/28/22 17:40 Resp 18 05/28/22 17:40 BP 134/85 05/28/22 17:40 Pulse Ox 94 L 05/28/22 17:40 FiO2 Intake & Output 05/27/22 05/28/22 05/28/22 18:59 06:59 18:59 Output Total 950 450 600 Balance -950 -450 -600 Output: Urine 950 450 600 Other: Voiding Method External Catheter External Catheter External Catheter - Constitutional General appearance: Present: no acute distress - Respiratory Respiratory: bilateral: CTA - Cardiovascular Rhythm: regular - Gastrointestinal General gastrointestinal: Present: normal bowel sounds - Integumentary Integumentary: Present: normal - Musculoskeletal Musculoskeletal Comment(s): Left foot and ankle casted - Labs CBC & Chem 7: 05/26/22 07:15 05/26/22 07:15 Assessment and Plan (1) Left trimalleolar fracture Narrative/Plan: Plan for possible surgical intervention on 05/30/22, pain control Current Visit: Yes Status: Acute Code(s): S82.852A - DISPLACED TRIMALLEOLAR FRACTURE OF LEFT LOWER LEG, INIT SNOMED Code(s): 125086247 (2) HTN (hypertension) Narrative/Plan: continue current and titrate as needed Current Visit: Yes Status: Acute Code(s): I10 - ESSENTIAL (PRIMARY) HYPERTENSION SNOMED Code(s): 37333815
[2022-05-28] MEDS: diphenhydrAMINE 25 MG CAP PO SCH (21:22)
[2022-05-29] MEDS: LORATADINE 10 MG TAB PO SCH (07:52)
[2022-05-29] MEDS: ATORVASTATIN 20 MG TAB PO SCH (07:52)
[2022-05-29] MEDS: LOSARTAN 25 MG TAB PO SCH (07:52)
[2022-05-29] MEDS: MONTELUKAST 10 MG TAB PO SCH (07:52)
[2022-05-29] MEDS: HYDROcodone/APAP 5-325MG 1 EACH TAB PO PRN ×3 (10:27→20:19)
--- NOTE | 2022-05-29 10:39 | P.PN ---
Subjective Progress Note Date: 05/29/22 Principal diagnosis: Left trimalleolar fracture This patient is a 56- year old female who sustained left trimalleolar ankle fracture dislocation on 05/25/22. Patient was admitted under the care of orthopedic surgery for rehab placement. Patient is examined bedside this morning. Patient was admitted for rehab placement, although upon evaluation by case management, rehab cost is very high and patient cannot afford this. Patient is requesting surgery be done prior to discharge. Patient states her new splint is very comfortable. Her pain in the ankle is well-controlled. Patient is doing well today with no complaints. She denies numbness or tingling of the left lower extremity. Vital signs stable. She is scheduled for a left ankle ORIF tomorrow afternoon. Objective - Vital Signs Vital signs: Vital Signs Temp 98.9 F 05/29/22 07:10 Pulse 95 05/29/22 07:30 Resp 18 05/29/22 07:30 BP 133/78 05/29/22 07:10 Pulse Ox 93 L 05/29/22 07:10 FiO2 Intake & Output 05/28/22 05/29/22 05/29/22 18:59 06:59 18:59 Output Total 600 450 Balance -600 -450 Output: Urine 600 450 Other: Voiding Method External Catheter External Catheter External Catheter - Exam On examination, patient is sitting up in bed in no apparent distress. She is alert and orientated x3. On inspection of the left lower extremity, there is a well-padded bulky Chong splint in place that is clean, dry, intact. The splint was opened to examine the swelling. Swelling is minimal to the lateral ankle and foot. Moderate swelling to the medial aspect of the ankle. Skin is intact. Splint reapplied today. Foot is warm and well perfused. Toes have brisk capillary refill. She is able to wiggle toes appropriately. No pain with PROM of the toes. - Labs CBC & Chem 7: 05/26/22 07:15 05/26/22 07:15 Assessment and Plan (1) Left trimalleolar fracture Current Visit: Yes Status: Acute Code(s): S82.852A - DISPLACED TRIMALLEOLAR FRACTURE OF LEFT LOWER LEG, INIT SNOMED Code(s): 049327019 Plan: - Patient cannot afford rehab and is requesting surgery be done prior to discharge. This was discussed with Dr. Aquino. We will attempt to plan for surgical intervention on Monday05/30/22 if her swelling has subsided enough to proceed with surgery. Patient will remain inpatient over the weekend. - Strict non-weight bearing left lower extremity. Keep bulky Chong splint in place. - Aggressive elevation and ice to left ankle for swelling control. - Pain management as needed. - Internal medicine consulted for medical management. - Will plan for OR Monday. NPO tonight at midnight.
--- NOTE | 2022-05-29 16:11 | P.PN ---
Subjective Progress Note Date: 05/29/22 Principal diagnosis: Trimalleolar fracture post fall Patient with HTN, cerebellar ataxia, who fell in parking lot and sustained a trimalleolar fracture on the left. The patient was going to rehab was unable to afford the cost so surgery will be done tomorrow 05/30 Objective - Vital Signs Vital signs: Vital Signs Temp 98.9 F 05/29/22 07:10 Pulse 95 05/29/22 07:30 Resp 18 05/29/22 07:30 BP 133/78 05/29/22 07:10 Pulse Ox 93 L 05/29/22 07:10 FiO2 Intake & Output 05/28/22 05/29/22 05/29/22 18:59 06:59 18:59 Output Total 600 450 600 Balance -600 -450 -600 Output: Urine 600 450 600 Other: Voiding Method External Catheter External Catheter External Catheter # Bowel Movements 1 - Constitutional General appearance: Present: no acute distress - Respiratory Respiratory: bilateral: CTA - Cardiovascular Rhythm: regular - Gastrointestinal General gastrointestinal: Present: normal bowel sounds - Musculoskeletal Musculoskeletal Comment(s): Left sided splint in place It is c/d/i - Labs CBC & Chem 7: 05/26/22 07:15 05/26/22 07:15 Assessment and Plan (1) Left trimalleolar fracture Narrative/Plan: Plan for ORIF on 05/30/22, pain control is adequate. Patient is intermedite risk for surgery and can proceed without any additional cardiac testing Current Visit: Yes Status: Acute Code(s): S82.852A - DISPLACED TRIMALLEOLAR FRACTURE OF LEFT LOWER LEG, INIT SNOMED Code(s): 595796723 (2) HTN (hypertension) Narrative/Plan: continue current regimen with Losartan and titrate as needed Current Visit: Yes Status: Acute Code(s): I10 - ESSENTIAL (PRIMARY) HYPERTENSION SNOMED Code(s): 54479514 Plan: Patient is intermediate risk for surgery planned for tomorrow 05/30/22. Please contact us with any additional questions
[2022-05-29] MEDS: diphenhydrAMINE 25 MG CAP PO SCH (20:19)
[2022-05-30] MEDS: MONTELUKAST 10 MG TAB PO SCH (07:07)
[2022-05-30] MEDS: LORATADINE 10 MG TAB PO SCH (07:07)
[2022-05-30] MEDS: ATORVASTATIN 20 MG TAB PO SCH (07:07)
[2022-05-30] MEDS: LOSARTAN 25 MG TAB PO SCH (07:19)
--- NOTE | 2022-05-30 14:44 | P.PN ---
Subjective Progress Note Date: 05/30/22 Principal diagnosis: Left ankle pain Patient was seen and examined. No acute events overnight. Patient reports well-controlled pain in her left ankle. Currently on [place] for pain control. Plans for ORIF today. Objective - Vital Signs Vital signs: Vital Signs Temp 99.4 F 05/30/22 07:54 Pulse 102 H 05/30/22 07:54 Resp 17 05/30/22 07:54 BP 139/77 05/30/22 07:54 Pulse Ox 95 05/30/22 07:54 FiO2 Intake & Output 05/29/22 05/30/22 05/30/22 18:59 06:59 18:59 Output Total 600 400 Balance -600 -400 Output: Urine 600 400 Other: Voiding Method External Catheter External Catheter # Voids 4 # Bowel Movements 1 - Exam General: [non toxic], [no distress], [appears at stated age] Derm: [warm], [dry] Head: [atraumatic], [normocephalic], [symmetric] Eyes: [EOMI], [no lid lag], [anicteric sclera] Mouth: [no lip lesion], [mucus membranes moist] Cardiovascular: [S1S2 reg], [no murmur] Lungs: [CTA bilateral], [no rhonchi, no rales] , [no accessory muscle use] Ext: [no gross muscle atrophy], [no edema], [left foot and ankle casted] Neuro: [no focal neuro deficits] Psych: [Alert], [oriented], [appropriate affect] - Labs CBC & Chem 7: 05/26/22 07:15 05/26/22 07:15 Assessment and Plan Assessment: Accidental fall resulting in trimalleolar fracture and dislocation of the left ankle Management per ortho. Splint. Pain control. Plans for ORIF today. PT and OT consulted. Chronic conditions: RA Cerebellar ataxia Hypertension Restart home medications. Heparin for DVT prophylaxis. FULL CODE. Thank you for allowing us to participate in the care of this patient. Do not hesitate to contact us with questions. Someone can be reached from the [facility] hospitalist group at all hours of the day at [phone].
[2022-05-30] MEDS ORDERED: LACTATED RINGERS 1,000 ML IV ONE ×2 (16:48)
[2022-05-30] MEDS: diphenhydrAMINE 25 MG CAP PO SCH (20:00)
[2022-05-30] MEDS: HYDROcodone/APAP 5-325MG 1 EACH TAB PO PRN (21:03)
[2022-05-31] MEDS: HYDROcodone/APAP 5-325MG 1 EACH TAB PO PRN ×4 (02:02→22:23)
[2022-05-31] MEDS: ATORVASTATIN 20 MG TAB PO SCH (07:57)
[2022-05-31] MEDS: MONTELUKAST 10 MG TAB PO SCH (07:57)
[2022-05-31] MEDS: LORATADINE 10 MG TAB PO SCH (07:57)
[2022-05-31] MEDS: LOSARTAN 25 MG TAB PO SCH (07:57)
--- NOTE | 2022-05-31 09:49 | P.PN ---
Subjective Progress Note Date: 05/31/22 This patient is a 56- year old female who sustained left trimalleolar ankle fracture dislocation on 05/25/22. Patient was admitted under the care of orthopedic surgery for rehab placement. Patient is examined bedside this morning. Patient was scheduled to undergo an ORIF of the left ankle yesterday, although due to OR scheduling this was delayed. Patient is now scheduled for surgery on Monday06/01/22. Patient states the pain in her left ankle is well controlled at this time. She is no complaints or concerns. Vital signs stable. Objective - Vital Signs Vital signs: Vital Signs Temp 98.0 F 05/31/22 06:45 Pulse 100 05/31/22 06:45 Resp 20 05/31/22 01:54 BP 128/77 05/31/22 06:45 Pulse Ox 94 L 05/31/22 06:45 FiO2 Intake & Output 05/30/22 05/31/22 05/31/22 18:59 06:59 18:59 Intake Total 520 Output Total 800 350 Balance -280 -350 Intake: IV 400 Oral 120 Output: Urine 800 350 Other: Voiding Method External Catheter - Exam On examination, patient is sitting up in bed in no apparent distress. She is alert and orientated x3. On inspection of the left lower extremity, there is a well-padded bulky Chong splint in place that is clean, dry, intact. Foot is warm and well perfused. Toes have brisk capillary refill. She is able to wiggle toes appropriately. No pain with PROM of the toes. - Labs CBC & Chem 7: 05/26/22 07:15 05/26/22 07:15 Assessment and Plan Assessment: Left trimalleolar fracture dislocation Plan: - Keep bulky Chong splint in place. Strict non-weight bearing left lower extremity. - Pain management as needed. - Keep left ankle elevated for swelling control. - Will plan for surgery tomorrow. NPO diet at midnight.
--- NOTE | 2022-05-31 11:26 | P.PN ---
Subjective Progress Note Date: 05/31/22 Feels okay today, pain is controlled. No chest pain no abdominal pain nausea no vomiting no dizziness no shortness of breath. Remains afebrile. Objective - Vital Signs Vital signs: Vital Signs Temp 98.0 F 05/31/22 06:45 Pulse 100 05/31/22 06:45 Resp 20 05/31/22 01:54 BP 128/77 05/31/22 06:45 Pulse Ox 94 L 05/31/22 06:45 FiO2 Intake & Output 05/30/22 05/31/22 05/31/22 18:59 06:59 18:59 Intake Total 520 Output Total 800 350 Balance -280 -350 Intake: IV 400 Oral 120 Output: Urine 800 350 Other: Voiding Method External Catheter - Exam General: [non toxic], [no distress], [appears at stated age] Derm: [warm], [dry] Head: [atraumatic], [normocephalic], [symmetric] Eyes: [EOMI], [no lid lag], [anicteric sclera] Mouth: [no lip lesion], [mucus membranes moist] Cardiovascular: [S1S2 reg], [no murmur] Lungs: [CTA bilateral], [no rhonchi, no rales] , [no accessory muscle use] Ext: No clubbing cyanosis or edema, [left foot and ankle casted] Neuro: [no focal neuro deficits] Psych: [Alert], [oriented], [appropriate affect] - Labs CBC & Chem 7: 05/26/22 07:15 05/26/22 07:15 Assessment and Plan Plan: Accidental fall resulting in trimalleolar fracture and dislocation of the left ankle Management per ortho. Plan for surgical intervention likely tomorrow Splint. Pain control. PT and OT consulted. Chronic conditions: RA Cerebellar ataxia Hypertension Continue home medications. Heparin for DVT prophylaxis. FULL CODE. Thank you for allowing us to participate in the care of this patient. Do not hesitate to contact us with questions. Someone can be reached from the [facility] hospitalist group at all hours of the day at [phone].
[2022-05-31] MEDS: diphenhydrAMINE 25 MG CAP PO SCH (20:51)
[2022-06-01] MEDS: HYDROmorphone 0.5 MG/0.5 ML SYRINGE IVP PRN ×2 (05:31→10:33)
[2022-06-01] MEDS: ATORVASTATIN 20 MG TAB PO SCH (08:12)
[2022-06-01] MEDS: LORATADINE 10 MG TAB PO SCH (08:12)
[2022-06-01] MEDS: MONTELUKAST 10 MG TAB PO SCH (08:12)
[2022-06-01] MEDS: LOSARTAN 25 MG TAB PO SCH (08:12)
[2022-06-01 09:37] LABS: HCT 38.5 % (37.2-46.3); HGB 12.4 g/dL (12.0-15.0); MCH 30.6 pg (27.0-32.0); MCHC 32.2 g/dL (32.0-37.0); MCV 95.1 fL (80.0-97.0); Mean Platelet Volume 9.9 fL (9.5-12.2); NRBC Per 100 WBC 0 /100 WBCS (0.0-0.0); Platelet Count 372 X 10*3/uL (140-440); RBC 4.05 X 10*6/uL (4.10-5.20); RDW 12.7 % (11.5-14.5); WBC 6.97 X 10*3/uL (4.50-10.00)
[2022-06-01 09:49] LABS: African American GFR (CKD) 94.2 (60.0-200.0); Albumin/Globulin Ratio 1.43 (1.60-3.17); Anion Gap 13.4 mmol/L (10.00-18.00); Calcium 9.4 mg/dL (8.7-10.3); Carbon Dioxide 24.6 mmol/L (20.0-27.5); Globulin 2.8 g/dL (1.6-3.3); Non-African American GFR(CKD) 81.3 (60.0-200.0); Potassium 4.2 mmol/L (3.5-5.5); Total Bilirubin 0.6 mg/dL (0.30-1.20); Total Protein 6.8 g/dL (6.2-8.2)
--- NOTE | 2022-06-01 11:01 | P.PN ---
Subjective Progress Note Date: 06/01/22 Feels fine today, pain is controlled. No chest pain no abdominal pain nausea no vomiting no dizziness no shortness of breath. Remains afebrile. Up in chair Objective - Vital Signs Vital signs: Vital Signs Temp 97.9 F 06/01/22 08:00 Pulse 100 06/01/22 08:00 Resp 16 06/01/22 01:37 BP 147/85 06/01/22 08:00 Pulse Ox 97 06/01/22 08:00 FiO2 Intake & Output 05/31/22 06/01/22 06/01/22 18:59 06:59 18:59 Output Total 400 350 Balance -400 -350 Output: Urine 400 350 Other: Voiding Method External Catheter External Catheter # Bowel Movements 1 - Exam General: [non toxic], [no distress], [appears at stated age] Derm: [warm], [dry] Head: [atraumatic], [normocephalic], [symmetric] Eyes: [EOMI], [no lid lag], [anicteric sclera] Mouth: [no lip lesion], [mucus membranes moist] Cardiovascular: [S1S2 reg], [no murmur] Lungs: [CTA bilateral], [no rhonchi, no rales] , [no accessory muscle use] Ext: No clubbing cyanosis or edema, [left foot and ankle casted] Neuro: [no focal neuro deficits] Psych: [Alert], [oriented], [appropriate affect] - Labs CBC & Chem 7: 06/01/22 06:27 06/01/22 06:27 Labs: Abnormal Lab Results - Last 24 Hours (Table) 06/01/22 06/01/22 Range/Units 06:27 06:27 RBC 4.05 L (4.10-5.20) X 10*6/uL AST 92 H (13-35) U/L ALT 139 H (8-44) U/L Alkaline Phosphatase 255 H (41-126) U/L Albumin/Globulin Ratio 1.43 L (1.60-3.17) g/dL Assessment and Plan Plan: Accidental fall resulting in trimalleolar fracture and dislocation of the left ankle Management per ortho. Plan for surgical intervention likely today Splint. Pain control. PT and OT consulted. Chronic conditions: RA Cerebellar ataxia Hypertension Continue home medications. Heparin for DVT prophylaxis. FULL CODE. Thank you for allowing us to participate in the care of this patient. Do not hesitate to contact us with questions. Someone can be reached from the [facility] hospitalist group at all hours of the day at [phone].
[2022-06-01 12:42] VITALS: BMI 33.6
[2022-06-01] MEDS ORDERED: LACTATED RINGERS 1,000 ML IV ONE ×2 (13:02→14:45)
--- NOTE | 2022-06-01 13:22 | P.ANPRN ---
Procedure Note - Anesthesia - Nerve Block Performed Left Adductor Canal Single Time Out Performed: Yes Date of Procedure: 06/01/22 Procedure Start Time: 13:07 Procedure Stop Time: 13:12 Location of Patient: PreOp Indication: Acute Post-Operative Pain, Requested by Surgeon Specifically requested for management of pain by : Mc Aquino Sedation Type: Sedate with meaningful contact maintained Preparation: Sterile Prep, Sterile Dressing Position: Supine Catheter: None Needle Types: Pajunk Needle Gauge: 20 Ultrasound used to visualize needle placement: Yes Ultrasound used to observe medication spread: Yes Injectate: 0.5% Ropivacaine (see comment for volume) (15 ml + decadron 4 mg) Blood Aspirated: No Pain Paresthesia on Injection Noted: No Resistance on Injection: Normal Image Stored and Saved: Yes Events: Uneventful and Well Tolerated Left Popliteal Single Time Out Performed: Yes Date of Procedure: 06/01/22 Procedure Start Time: 13:13 Procedure Stop Time: 13:19 Location of Patient: PreOp Indication: Acute Post-Operative Pain, Requested by Surgeon Sedation Type: Sedate with meaningful contact maintained Preparation: Sterile Prep, Sterile Dressing Position: Right Lateral Catheter: None Needle Types: Pajunk Needle Gauge: 20 Ultrasound used to visualize needle placement: Yes Ultrasound used to observe medication spread: Yes Injectate: 0.5% Ropivacaine (see comment for volume) (15 ml + decadron 4 mg) Blood Aspirated: No Pain Paresthesia on Injection Noted: No Resistance on Injection: Normal Image Stored and Saved: Yes Events: Uneventful and Well Tolerated
[2022-06-01] MEDS ORDERED: ONDANSETRON 4 MG/2 ML VIAL IVP ONE (13:25)
[2022-06-01] MEDS ORDERED: MIDAZOLAM 2 MG/2 ML VIAL IVP ONE (13:26)
[2022-06-01] MEDS ORDERED: DEXAMETHASONE SOD PHOSPHATE 10 MG/ML 1 ML VIAL ONE (13:48)
[2022-06-01] MEDS ORDERED: PROPOFOL 10 MG/ML 20 ML VIAL IV ONE (13:48)
[2022-06-01] MEDS ORDERED: SUCCINYLCHOLINE CHLORIDE 100 MG/5 ML SYR IV ONE (13:48)
[2022-06-01] MEDS ORDERED: LIDOCAINE 2% INJ 20 MG/ML (2 ML VIAL) ONE (13:48)
[2022-06-01] MEDS ORDERED: MIDAZOLAM 2 MG/2 ML VIAL ONE (13:48)
[2022-06-01] MEDS ORDERED: fentaNYL (PF) 50 MCG/ML 2 ML AMP ONE (13:48)
[2022-06-01] MEDS ORDERED: TRANEXAMIC ACID IN NACL,ISO-OS 1,000 MG/100 ML BAG ONE (13:48)
[2022-06-01] MEDS ORDERED: ROPIVACAINE 5 MG/ML 30 ML VIAL ONE (13:48)
[2022-06-01] MEDS ORDERED: TRANEXAMIC ACID IN NACL,ISO-OS 1,000 MG in SALINE 1 100ML.BAG IVPB ONE (14:17)
[2022-06-01] MEDS ORDERED: SENNOSIDES-DOCUSATE SODIUM 1 EACH TAB PO PRN (14:40)
[2022-06-01] MEDS ORDERED: diphenhydrAMINE 25 MG CAP PO PRN (14:40)
--- NOTE | 2022-06-01 15:29 | P.OP ---
Date of Procedure: 06/01/22 Procedure(s) Performed: PREOPERATIVE DIAGNOSES: 1. Left ankle trimalleolar fracture dislocation; 2. Severe osteoporosis; 3. Poor quality soft tissue; 4. History of severe rheumatoid arthritis POSTOPERATIVE DIAGNOSES: 1. Left ankle trimalleolar fracture dislocation; 2. Severe osteoporosis; 3. Poor quality soft tissue; 4. History of severe rheumatoid arthritis PROCEDURES PERFORMED: 1. Left ankle open treatment of trimalleolar fracture dislocation with open reduction and internal fixation of medial and lateral malleoli 2. Syndesmosis fixation using [employer] tight rope ANESTHESIA: proposal engineer: Tootie Burrell NP (assistance with exposure, hemostasis, retraction, fixation, closure, dressing, splint) COMPLICATIONS: None ESTIMATED BLOOD LOSS: 20 mL. TOURNIQUET: approximately 70 minutes DISPOSITION: To post-anesthesia care unit INDICATIONS: The patient is a 56-year-old female with severe rheumatoid arthritis, who presents to the operating room today for fixation of left ankle fracture. The fracture is a trimalleolar fracture dislocation, with a fracture of the lateral malleolus that is a Garza C. This was due to a fall. Her initial ER xrays showed a fracture dislocation with severe posterior and lateral displacement of the talus relative to the plafond. The ankle has since been reduced but is still in need of operative fixation. I have discussed these issues with the patient, who wishes to proceed with the operative plan. I have explained the severity of her fracture as well as details of this surgery thoroughly and also explained the potential risks and complications. These are inclusive of, but not limited to: bleeding, infection, scarring, discomfort, blood vessel and nerve damage, stiffness, weakness, need for further surgery, failure to relieve symptoms, persistence or worsening of problems, , and other risks. The patient is aware of the severity of her fracture and of these risks and agrees to proceed with surgery. The consent form has been signed. PROCEDURE: After appropriate consent was obtained, the patient was taken to the operating room and placed supine on the operating table. General anesthesia was initiated. The ankle was removed from the splint and examined for any signs of significant fracture blisters or swelling that would prevent continuation of the surgery. Skin appeared healthy and intact, swellling was moderate but not excessive. No fracture blisters were noted, good skin condition. The limb was prepped and draped in the usual aseptic fashion with ChloraPrep, and the patient was given IV antibiotics. The tourniquet was then inflated to 250 mmHg after careful exsanguination of the limb. Time out was called, confirming patient identity, side, procedure, and administration of antibiotics. Incision was created laterally, centered over the distal fibular fracture site, for a length of approximately 4 inches. The incision was carried down through skin and into subcutaneous tissues, and note was made of poor quality soft tissue. Because of this, sharp dissection creating full-thickness anterior and posterior flaps were created to preserve vascularity of the soft tissues. The peroneal muscles were retracted posteriorly. The fracture site was exposed with subperiosteal dissection for as much exposure of the bone as was necessary. Fracture hematoma was minimally evacuated but preserved as much as possible to enhance fracture healing. The interior of the fracture site was cleansed with irrigation. The fracture was moderately comminuted and oblique in orientation, but of very poor quality such that the bone was spongy to palpation. The fracture was mobilized using manual manipulation and reduction was accomplished using a bone clamp, which was also used to secure the fracture. Anatomic reduction was accomplished. An interfragmentary screw perpendicular to the oblique fracture site was attempted to be placed but did not have good purchase in the bone and was removed as it did not add to stability of the fracture site. A precontoured fibular plate from [employer] was selected for size and side. The plate was placed laterally on the fibula and C-arm imaging was used to confirm proper placement. The proximal holes were filled with fully threaded 3.5 mm cortical screws. Distal holes were filled with 5 2.7 mm locking screws. No evidence of joint penetration on the C-arm views was noted. Next, the medial malleolus was evaluated and treated. An incision was created for approximately 1.5 inches on the medial aspect of the ankle, and carried down through skin sharply and then bluntly using a dissecting scissor down to fascia and periosteum. Once again, deficient soft tissues of poor quality were noted. The fracture fragment, although comminuted, was able to be mobilized and secured with a [id number] reduction forceps. Subsequently 2 guide pins were placed across the fracture site and several adjustments were made of these guide pins so that the position was perfect on C-arm imaging. The outer cortex was reamed, and appropriately sized 4.0 cannulated cancellous screws with washers and long threads were inserted over the guide pins until they were fully deployed. Final C-arm images were then taken, showing anatomic alignment of the mortise and medial malleolar fracture site. Posterior malleolus fracture remained minimally displaced and was only a small 10% or less portion of the tibial plafond and therefore was treated nonoperatively. The fracture was noted to be in anatomic position and stress testing under C-arm imaging showed no significant migration, shift, or tilt of the talus with external rotation stress, hindfoot inversion or eversion. Screw lengths were noted to be appropriate and the incision was then irrigated thoroughly using normal saline. Tourniquet was deflated and hemostasis was obtained using electrocautery. The fascia and subcutaneous tissues were closed in one layer closure with 2-0 Vicryl suture. Skin was closed with lazara on the lateral side, and with sutures on the medial side. Sterile dressing was applied and well padded, well molded short leg splint was applied with the ankle in neutral. Patient tolerated the procedure well and taken to recovery room in stable condition. Sponge and needle counts were correct.
--- NOTE | 2022-06-01 16:15 | FL ---
Fluoroscopy HISTORY: Open reduction internal fixation 22 seconds fluoroscopy time supplied to the referring clinician. 2 intraoperative C-arm images docum ent the procedure. See dictated report from orthopedic surgery.
[2022-06-01] MEDS: LACTATED RINGERS 1,000 ML IV SCH (16:46)
--- NOTE | 2022-06-01 20:12 | P.ANPRN ---
Procedure Note - Anesthesia - Nerve Block Performed Left Adductor Canal Single Time Out Performed: Yes Date of Procedure: 06/01/22 Procedure Start Time: 13:07 Procedure Stop Time: 13:14 Location of Patient: PreOp Indication: Acute Post-Operative Pain, Requested by Surgeon Sedation Type: Sedate with meaningful contact maintained Preparation: Sterile Prep, Sterile Dressing Position: Supine Catheter: None Needle Types: Pajunk Needle Gauge: 20 Ultrasound used to visualize needle placement: Yes Ultrasound used to observe medication spread: Yes Injectate: 0.5% Ropivacaine (see comment for volume) (15 ml + decadron 4 mg) Blood Aspirated: No Pain Paresthesia on Injection Noted: No Resistance on Injection: Normal Image Stored and Saved: Yes Events: Uneventful and Well Tolerated Left Popliteal Single Time Out Performed: Yes Date of Procedure: 06/01/22 Procedure Start Time: 13:15 Procedure Stop Time: 13:23 Location of Patient: PreOp Indication: Acute Post-Operative Pain, Requested by Surgeon Sedation Type: Sedate with meaningful contact maintained Preparation: Sterile Prep, Sterile Dressing Position: Right Lateral Catheter: None Needle Types: Pajunk Needle Gauge: 20 Ultrasound used to visualize needle placement: Yes Ultrasound used to observe medication spread: Yes Injectate: 0.5% Ropivacaine (see comment for volume) (15 ml + decadron 4 mg) Blood Aspirated: No Pain Paresthesia on Injection Noted: No Resistance on Injection: Normal Image Stored and Saved: Yes Events: Uneventful and Well Tolerated
[2022-06-01] MEDS: diphenhydrAMINE 25 MG CAP PO SCH (21:21)
[2022-06-02] MEDS: LACTATED RINGERS 1,000 ML IV SCH ×2 (05:10→12:01)
[2022-06-02] MEDS: ASPIRIN 81 MG PO SCH ×3 (07:57→21:09)
--- NOTE | 2022-06-02 08:43 | P.PN ---
Subjective Progress Note Date: 06/02/22 Principal diagnosis: Trimalleolar fracture left ankle. Status post ORIF left ankle. This is a 56-year-old female who is postop day #1 status post ORIF left ankle. The patient is stable from an orthopedic standpoint. She has no new complaints or concerns today. Vital signs are stable. Objective - Vital Signs Vital signs: Vital Signs Temp 98.5 F 06/02/22 08:05 Pulse 98 06/02/22 08:05 Resp 18 06/02/22 08:05 BP 129/81 06/02/22 08:05 Pulse Ox 95 06/02/22 08:05 FiO2 Intake & Output 06/01/22 06/02/22 06/02/22 18:59 06:59 18:59 Intake Total 1450 Output Total 1370 700 Balance 80 -700 Weight 97.522 kg Intake: IV 1450 Output: Urine 1350 700 Estimated Blood Loss 20 Other: Voiding Method External Catheter - Exam This is a pleasant 56-year-old female in no acute distress. She is alert and oriented 3. Exam of the left lower extremity reveals that her splint is intact. There is no drainage noted on the dressing or splint. She has full toe motion without difficulty or pain. Neurovascular status to the lower extremity is intact. - Labs CBC & Chem 7: 06/01/22 06:27 06/01/22 06:27 Labs: Abnormal Lab Results - Last 24 Hours (Table) 06/01/22 06/01/22 Range/Units 06:27 06:27 RBC 4.05 L (4.10-5.20) X 10*6/uL AST 92 H (13-35) U/L ALT 139 H (8-44) U/L Alkaline Phosphatase 255 H (41-126) U/L Albumin/Globulin Ratio 1.43 L (1.60-3.17) g/dL Assessment and Plan (1) Status post ORIF of fracture of ankle Current Visit: Yes Status: Acute Code(s): Z98.890 - OTHER SPECIFIED POSTPROCEDURAL STATES; Z87.81 - PERSONAL HISTORY OF (HEALED) TRAUMATIC FRACTURE SNOMED Code(s): 161928213 (2) Left trimalleolar fracture Current Visit: Yes Status: Acute Code(s): S82.852A - DISPLACED TRIMALLEOLAR FRACTURE OF LEFT LOWER LEG, INIT SNOMED Code(s): 203089982 Plan: The clinical findings are discussed with the patient. Physical therapy will be working with her today. She is toe-touch weightbearing to the left lower extremity. We're planning discharge to home with home care tomorrow.
[2022-06-02 08:52] LABS: HCT 36.6 % (37.2-46.3); HGB 11.8 g/dL (12.0-15.0); MCH 30.6 pg (27.0-32.0); MCHC 32.2 g/dL (32.0-37.0); MCV 95.1 fL (80.0-97.0); Mean Platelet Volume 9.9 fL (9.5-12.2); NRBC Per 100 WBC 0 /100 WBCS (0.0-0.0); Platelet Count 399 X 10*3/uL (140-440); RBC 3.85 X 10*6/uL (4.10-5.20); RDW 12.5 % (11.5-14.5); WBC 8.08 X 10*3/uL (4.50-10.00)
[2022-06-02 09:15] LABS: African American GFR (CKD) 94.2 (60.0-200.0); Albumin 3.6 g/dL (3.8-4.9); Albumin/Globulin Ratio 1.33 (1.60-3.17); Anion Gap 14.9 mmol/L (10.00-18.00); BUN/Creat Ratio 19.5 Ratio (12.00-20.00); Blood Urea Nitrogen 15.6 mg/dL (9.0-27.0); Calcium 9.4 mg/dL (8.7-10.3); Carbon Dioxide 22.1 mmol/L (20.0-27.5); Globulin 2.7 g/dL (1.6-3.3); Non-African American GFR(CKD) 81.3 (60.0-200.0); Potassium 4.4 mmol/L (3.5-5.5); Total Bilirubin 0.4 mg/dL (0.30-1.20); Total Protein 6.3 g/dL (6.2-8.2)
[2022-06-02] MEDS: ATORVASTATIN 20 MG TAB PO SCH (09:58)
[2022-06-02] MEDS: LOSARTAN 25 MG TAB PO SCH (09:58)
[2022-06-02] MEDS: LORATADINE 10 MG TAB PO SCH (09:58)
[2022-06-02] MEDS: MONTELUKAST 10 MG TAB PO SCH (09:58)
--- NOTE | 2022-06-02 15:08 | P.PN ---
Subjective Progress Note Date: 06/02/22 Principal diagnosis: Left ankle pain Patient was seen and examined. No acute events overnight. Patient reports well-controlled pain in her left ankle. Currently on [place] for pain control. Patient underwent Left ankle open treatment of trimalleolar fracture dislocation with open reduction and internal fixation of medial and lateral malleoli on 06/01. Objective - Vital Signs Vital signs: Vital Signs Temp 98.4 F 06/02/22 14:01 Pulse 109 H 06/02/22 14:01 Resp 15 06/02/22 14:01 BP 132/77 06/02/22 14:01 Pulse Ox 95 06/02/22 14:01 FiO2 Intake & Output 06/01/22 06/02/22 06/02/22 18:59 06:59 18:59 Intake Total 1450 Output Total 1370 700 Balance 80 -700 Weight 97.522 kg Intake: IV 1450 Output: Urine 1350 700 Estimated Blood Loss 20 Other: Voiding Method External Catheter - Exam General: [non toxic], [no distress], [appears at stated age] Derm: [warm], [dry] Head: [atraumatic], [normocephalic], [symmetric] Eyes: [EOMI], [no lid lag], [anicteric sclera] Mouth: [no lip lesion], [mucus membranes moist] Cardiovascular: [S1S2 reg], [no murmur] Lungs: [CTA bilateral], [no rhonchi, no rales] , [no accessory muscle use] Ext: [no gross muscle atrophy], [no edema], [left foot and ankle casted] Neuro: [no focal neuro deficits] Psych: [Alert], [oriented], [appropriate affect] - Labs CBC & Chem 7: 06/02/22 06:38 06/02/22 06:38 Labs: Abnormal Lab Results - Last 24 Hours (Table) 06/02/22 06/02/22 Range/Units 06:38 06:38 RBC 3.85 L (4.10-5.20) X 10*6/uL Hgb 11.8 L (12.0-15.0) g/dL Hct 36.6 L (37.2-46.3) % AST 48 H (13-35) U/L ALT 86 H (8-44) U/L Alkaline Phosphatase 213 H (41-126) U/L Albumin 3.6 L (3.8-4.9) g/dL Albumin/Globulin Ratio 1.33 L (1.60-3.17) g/dL Assessment and Plan Assessment: Accidental fall resulting in trimalleolar fracture and dislocation of the left ankle Management per ortho. Splint. Pain control. Left ankle open treatment of trimalleolar fracture dislocation with open reduction and internal fixation of medial and lateral malleoli on 06/01. PT and OT consulted. Chronic conditions: RA Cerebellar ataxia Hypertension Restart home medications. Heparin for DVT prophylaxis. FULL CODE. Plans for hopeful DC tomorrow. Thank you for allowing us to participate in the care of this patient. Do not hesitate to contact us with questions. Someone can be reached from the [facility] hospitalist group at all hours of the day at [phone].
[2022-06-02] MEDS: HYDROcodone/APAP 5-325MG 1 EACH TAB PO PRN ×2 (15:09→21:09)
[2022-06-02] MEDS: diphenhydrAMINE 25 MG CAP PO SCH (21:09)
[2022-06-03] MEDS: HYDROcodone/APAP 5-325MG 1 EACH TAB PO PRN ×2 (04:27→11:20)
[2022-06-03] MEDS: LACTATED RINGERS 1,000 ML IV SCH (07:17)
[2022-06-03] MEDS: MONTELUKAST 10 MG TAB PO SCH (07:59)
[2022-06-03] MEDS: ATORVASTATIN 20 MG TAB PO SCH (07:59)
[2022-06-03] MEDS: ASPIRIN 81 MG PO SCH (07:59)
[2022-06-03] MEDS: LORATADINE 10 MG TAB PO SCH (07:59)
[2022-06-03] MEDS: LOSARTAN 25 MG TAB PO SCH (07:59)
[2022-06-03 09:23] VITALS: BP 134/86; PULSE 99; RESP 16; TEMP 98.6
--- NOTE | 2022-06-03 10:10 | P.DS ---
Providers Date of admission: 05/25/22 15:40 Expected date of discharge: 06/03/22 Attending physician: Mc Aquino Consults: 05/25/22 15:31 Consult Physician Routine Consulting Provider: Roberta Dwyer Consult Reason/Comments: Medical management Do you want consulting provider notified?: Yes Primary care physician: Jan Duarte - Discharge Diagnosis(es) (1) Status post ORIF of fracture of ankle Current Visit: Yes Status: Acute (2) Left trimalleolar fracture Current Visit: Yes Status: Acute Hospital Course: This patient is a 56- year old female with a past medical history of rheumatoid arthritis, cerebellar ataxia that presented to [facility] emergency department on 05/25/2022 via EMS with complaints of left ankle pain and deformity following a ground level fall. Patient states she was walking in a parking lot and twisted her ankle. She noticed immediate deformity of the ankle and EMS was called. Upon presentation to the emergency department, x-rays of the left ankle revealed a trimalleolar fracture dislocation. Her ankle was reduced and splinted in the emergency department. There was concern for patient's safety returning home, therefore she was admitted under the care of Dr. Aquino for rehab placement. Internal medicine was consulted for medical management. Patient is examined bedside this afternoon. Patient states her left ankle pain is controlled at this this time. She denies additional injuries or complaints. Denies head injury. She states she ambulates with a walker at baseline due to her cerebellar ataxia. Patient denies numbness or tingling of the left lower extremity. Vital signs stable. The patient is taken to surgery on 06/01/2022 for open reduction internal fixation of the left ankle trimalleolar fracture. The patient did well postoperatively. There are no new concerns. Vital signs and labs are stable. The patient did well with physical therapy maintaining toe-touch weightbearing to the left lower extremity. Planning discharge to home with home care. Please see med rec for accurate list of home medications. Patient Condition at Discharge: Fair Plan - Discharge Summary Discharge Rx Participant: No New Discharge Prescriptions: New HYDROcodone/APAP 5-325MG [[place] 5-325] 1 tab PO Q6HR PRN 7 Days #28 tab PRN Reason: Pain No Action Multivitamins, Thera [Multivitamin (formulary)] 1 tab PO HS Turmeric Root Extract [Turmeric] 500 mg PO DAILY Losartan [Cozaar] 25 mg PO DAILY Atorvastatin [Lipitor] 20 mg PO DAILY Loratadine 10 mg PO DAILY Cholecalciferol [Vitamin D3 (25 Mcg = 1000 Iu)] 25 mcg PO DAILY Upadacitinib [Rinvoq] 15 mg PO DAILY Omeprazole Magnesium [PriLOSEC OTC] 20 mg PO DAILY Montelukast [Singulair] 10 mg PO DAILY diphenhydrAMINE [Benadryl] 25 mg PO HS Discharge Medication List Atorvastatin [Lipitor] 20 mg PO DAILY 05/25/22 [History] Cholecalciferol [Vitamin D3 (25 Mcg = 1000 Iu)] 25 mcg PO DAILY 05/25/22 [History] Loratadine 10 mg PO DAILY 05/25/22 [History] Losartan [Cozaar] 25 mg PO DAILY 05/25/22 [History] Montelukast [Singulair] 10 mg PO DAILY 05/25/22 [History] Multivitamins, Thera [Multivitamin (formulary)] 1 tab PO HS 05/25/22 [History] Omeprazole Magnesium [PriLOSEC OTC] 20 mg PO DAILY 05/25/22 [History] Turmeric Root Extract [Turmeric] 500 mg PO DAILY 05/25/22 [History] Upadacitinib [Rinvoq] 15 mg PO DAILY 05/25/22 [History] diphenhydrAMINE [Benadryl] 25 mg PO HS 05/25/22 [History] HYDROcodone/APAP 5-325MG [[place] 5-325] 1 tab PO Q6HR PRN 7 Days #28 tab 05/27/22 [Rx] Follow up Appointment(s)/Referral(s): [facility], [NON-STAFF] - As Needed ([facility] will call you to schedule your in home nursing, PT, and OT visits. ) Mc Aquino MD [STAFF PHYSICIAN] - 05/30/22 Jan Duarte DO [Primary Care Provider] - 1-2 days Activity/Diet/Wound Care/Special Instructions: Toe touch weightbearing with a walker Hold immunosuppressive medication for 2 weeks postoperatively. Discharge Disposition: TRANSFER TO SNF/ECF
--- NOTE | 2022-06-03 10:31 | P.PN ---
Subjective Progress Note Date: 06/03/22 Principal diagnosis: Left ankle pain Patient was seen and examined. No acute events overnight. Patient reports well-controlled pain in her left ankle. Currently on [place] for pain control. Patient underwent Left ankle open treatment of trimalleolar fracture dislocation with open reduction and internal fixation of medial and lateral malleoli on 06/01. Objective - Vital Signs Vital signs: Vital Signs Temp 98.6 F 06/03/22 08:00 Pulse 99 06/03/22 08:00 Resp 16 06/03/22 08:00 BP 134/86 06/03/22 08:00 Pulse Ox 93 L 06/03/22 08:00 FiO2 Intake & Output 06/02/22 06/03/22 06/03/22 18:59 06:59 18:59 Intake Total 1500 240 Output Total 700 1200 Balance 800 -960 Intake: Oral 1500 240 Output: Urine 700 1200 Other: Voiding Method External Catheter - Exam General: [non toxic], [no distress], [appears at stated age] Derm: [warm], [dry] Head: [atraumatic], [normocephalic], [symmetric] Eyes: [EOMI], [no lid lag], [anicteric sclera] Mouth: [no lip lesion], [mucus membranes moist] Cardiovascular: [S1S2 reg], [no murmur] Lungs: [CTA bilateral], [no rhonchi, no rales] , [no accessory muscle use] Ext: [no gross muscle atrophy], [no edema], [left foot and ankle casted] Neuro: [no focal neuro deficits] Psych: [Alert], [oriented], [appropriate affect] - Labs CBC & Chem 7: 06/02/22 06:38 06/02/22 06:38 Assessment and Plan Assessment: Accidental fall resulting in trimalleolar fracture and dislocation of the left ankle Management per ortho. Splint. Pain control. Left ankle open treatment of trimalleolar fracture dislocation with open reduction and internal fixation of medial and lateral malleoli on 06/01. PT and OT consulted. Chronic conditions: RA Cerebellar ataxia Hypertension Hold RA meds for 2 weeks per Orthopedic surgery. Heparin for DVT prophylaxis. FULL CODE. Plans for hopeful DC tomorrow. Thank you for allowing us to participate in the care of this patient. Do not hesitate to contact us with questions. Someone can be reached from the [facility] hospitalist group at all hours of the day at [phone]. Patient medically cleared for DC.
== END 2022-06-03 13:10 | DRG 493 ==
LOC: EC 11:21 → 4SSUR 15:40
PROVIDERS: ADMIT Orthopaedic Surgery; ATTEND Orthopaedic Surgery
PROC: 0QSFXZZ Reposition Left Patella, External Approach (ICD-10-PCS; 2022-05-25)
PROC: 0QSHXZZ Reposition Left Tibia, External Approach (ICD-10-PCS; 2022-05-25)
PROC: 0QSKXZZ Reposition Left Fibula, External Approach (ICD-10-PCS; 2022-05-25)
PROC: 0QSH04Z Reposition Left Tibia with Internal Fixation Device, Open Approach (ICD-10-PCS; principal; 2022-06-01 13:45)
PROC: 0QSK04Z Reposition Left Fibula with Internal Fixation Device, Open Approach (ICD-10-PCS; principal; 2022-06-01 13:45)
DX: S82.852A Displaced trimalleolar fracture of left lower leg, initial encounter for closed fracture (principal); G11.9 Hereditary ataxia, unspecified; G62.9 Polyneuropathy, unspecified; M81.0 Age-related osteoporosis without current pathological fracture; M06.9 Rheumatoid arthritis, unspecified; I10 Essential (primary) hypertension; W18.30XA Fall on same level, unspecified, initial encounter; X50.1XXA Overexertion from prolonged static or awkward postures, initial encounter; Y92.481 Parking lot as the place of occurrence of the external cause; Z79.899 Other long term (current) drug therapy; Z88.2 Allergy status to sulfonamides; Z91.011 Allergy to milk products
CPT/HCPCS: 27532; 64445; 64447; 76942; 80048; 80053; 85025; 85027; 94760; 96374; 96375; 99152; 99153; 99285

== ENCOUNTER 2022-06-05 09:15 | Observation (INO) | payer BC ==
[2022-06-05 09:43] LABS: Basophils # (A) 0.1 k/uL (0-0.2); Basophils % (A) 1 %; Eosinophils # (A) 0.1 k/uL (0-0.7); Eosinophils % (A) 2 %; HGB 12.8 gm/dL (11.4-16.0); Lymphocytes # (A) 1.1 k/uL (1.0-4.8); Lymphocytes % (A) 14 %; MCH 31.2 pg (25.0-35.0); MCV 97.4 fL (80.0-100.0); Mean Platelet Volume 7.4; Monocytes # (A) 0.5 k/uL (0-1.0); Monocytes % (A) 6 %; Neutrophils # (A) 5.8 k/uL (1.3-7.7); Neutrophils % (A) 76 %; Platelet Count 526 k/uL (150-450); RBC 4.11 m/uL (3.80-5.40); RDW 12.6 % (11.5-15.5); WBC 7.7 k/uL (3.8-10.6)
[2022-06-05 09:54] LABS: ALT 63 U/L (4-34); AST 45 U/L (14-36); African American GFR (CKD) >90 (>60 ml/min/1.73 sqM); Albumin 4.1 g/dL (3.5-5.0); Alkaline Phosphatase 267 U/L (38-126); Anion Gap 9 mmol/L; Blood Urea Nitrogen 20 mg/dL (7-17); Calcium 9.5 mg/dL (8.4-10.2); Carbon Dioxide 23 mmol/L (22-30); Chloride 108 mmol/L (98-107); Glucose 103 mg/dL (74-99); Non-African American GFR(CKD) >90 (>60 ml/min/1.73 sqM); Potassium 4.2 mmol/L (3.5-5.1); Sodium 140 mmol/L (137-145); Total Bilirubin 0.6 mg/dL (0.2-1.3); Total Protein 7.3 g/dL (6.3-8.2)
[2022-06-05] MEDS ORDERED: NALOXONE 0.4 MG/ML 1 ML VIAL IV PRN (10:08)
[2022-06-05] MEDS ORDERED: ACETAMINOPHEN TAB 325 MG TAB PO PRN (10:08)
[2022-06-05] MEDS ORDERED: HYDROcodone/APAP 5-325MG 1 EACH TAB PO PRN (10:09)
--- NOTE | 2022-06-05 10:11 | ED ---
Extremity Problem HPI - General Chief complaint: Extremity Problem,Nontraumatic Stated complaint: leg pain-revisit Time Seen by Provider: 06/05/22 09:21 Source: patient, RN notes reviewed Mode of arrival: wheelchair Limitations: no limitations - History of Present Illness Initial comments: 56-year-old female presents emergency Department with chief complaint of unable take care of herself at home, of ankle fracture. Patient had surgery and was discharged Monday after ORIF left trimalleolar fracture. Patient states she was instructed to go to rehab but she states she went to go home. She states she is unable to care for herself at home. She states that she is too unsteady to get around. Patient denies any new complaints she states is swollen but this is to be expected she is on [place] for pain control. - Related Data Home Medications Medication Instructions Recorded Confirmed Atorvastatin [Lipitor] 20 mg PO DAILY 05/25/22 05/25/22 Cholecalciferol [Vitamin D3 (25 25 mcg PO DAILY 05/25/22 05/25/22 Mcg = 1000 Iu)] Loratadine 10 mg PO DAILY 05/25/22 05/25/22 Losartan [Cozaar] 25 mg PO DAILY 05/25/22 05/25/22 Montelukast [Singulair] 10 mg PO DAILY 05/25/22 05/25/22 Multivitamins, Thera [Multivitamin 1 tab PO HS 05/25/22 05/25/22 (formulary)] Omeprazole Magnesium [PriLOSEC OTC] 20 mg PO DAILY 05/25/22 05/25/22 Turmeric Root Extract [Turmeric] 500 mg PO DAILY 05/25/22 05/25/22 Upadacitinib [Rinvoq] 15 mg PO DAILY 05/25/22 05/25/22 diphenhydrAMINE [Benadryl] 25 mg PO HS 05/25/22 05/25/22 Previous Rx's Medication Instructions Recorded HYDROcodone/APAP 5-325MG [[place] 1 tab PO Q6HR PRN 7 Days #28 tab 05/27/22 5-325] Aspirin 81 mg PO BID tab 06/03/22 Allergies Allergy/AdvReac Type Severity Reaction Status Date / Time Milk Containing Products Allergy Rash/Hives Verified 06/05/22 09:20 [Dairy] Sulfa (Sulfonamide Allergy Rash/Hives Verified 06/05/22 09:20 Antibiotics) wheat AdvReac Rash/Hives Verified 06/05/22 09:20 Review of Systems ROS Statement: Those systems with pertinent positive or pertinent negative responses have been documented in the HPI. ROS Other: All systems not noted in ROS Statement are negative. Past Medical History Past Medical History: Hypertension, Rheumatoid Arthritis (RA) Additional Past Medical History / Comment(s): Neuropathy, cerebelar ataxia History of Any Multi-Drug Resistant Organisms: None Reported Past Surgical History: Section, Orthopedic Surgery Additional Past Surgical History / Comment(s): Knee surgery, shoulder surgery Past Anesthesia/Blood Transfusion Reactions: No Reported Reaction Past Psychological History: No Psychological Hx Reported Smoking Status: Never smoker Past Alcohol Use History: None Reported Past Drug Use History: None Reported - Past Family History family Family Medical History: No Reported History General Exam Limitations: no limitations General appearance: alert, in no apparent distress Head exam: Present: atraumatic, normocephalic, normal inspection Respiratory exam: Present: normal lung sounds bilaterally. Absent: respiratory distress, wheezes, rales, rhonchi, stridor Cardiovascular Exam: Present: regular rate, normal rhythm, normal heart sounds. Absent: systolic murmur, diastolic murmur, rubs, gallop, clicks Extremities exam: Present: other (Left leg there is noted posterior splint short leg capillary refill less than 2 seconds. Toes normal color, full sensation) Course Vital Signs 06/05/22 09:18 Temperature 98.4 F Pulse Rate 97 Respiratory 16 Rate Blood Pressure 156/86 O2 Sat by Pulse 96 Oximetry Medical Decision Making - Medical Decision Making I did discuss the case with Dr. Garcia on-call for Dr. Castelan is recommended be admitted to medicine for placement as there is no new surgical intervention needed. - Lab Data Result diagrams: 06/05/22 09:37 06/05/22 09:37 Lab Results 06/05/22 06/05/22 Range/Units 09:37 09:37 WBC 7.7 (3.8-10.6) k/uL RBC 4.11 (3.80-5.40) m/uL Hgb 12.8 (11.4-16.0) gm/dL Hct 40.0 (34.0-46.0) % MCV 97.4 (80.0-100.0) fL MCH 31.2 (25.0-35.0) pg MCHC 32.0 (31.0-37.0) g/dL RDW 12.6 (11.5-15.5) % Plt Count 526 H (150-450) k/uL MPV 7.4 Neutrophils % 76 % Lymphocytes % 14 % Monocytes % 6 % Eosinophils % 2 % Basophils % 1 % Neutrophils # 5.8 (1.3-7.7) k/uL Lymphocytes # 1.1 (1.0-4.8) k/uL Monocytes # 0.5 (0-1.0) k/uL Eosinophils # 0.1 (0-0.7) k/uL Basophils # 0.1 (0-0.2) k/uL Sodium 140 (137-145) mmol/L Potassium 4.2 (3.5-5.1) mmol/L Chloride 108 H (98-107) mmol/L Carbon Dioxide 23 (22-30) mmol/L Anion Gap 9 mmol/L BUN 20 H (7-17) mg/dL Creatinine 0.68 (0.52-1.04) mg/dL Est GFR (CKD-EPI)AfAm >90 (>60 ml/min/1.73 sqM) Est GFR (CKD-EPI)NonAf >90 (>60 ml/min/1.73 sqM) Glucose 103 H (74-99) mg/dL Calcium 9.5 (8.4-10.2) mg/dL Total Bilirubin 0.6 (0.2-1.3) mg/dL AST 45 H (14-36) U/L ALT 63 H (4-34) U/L Alkaline Phosphatase 267 H (38-126) U/L Total Protein 7.3 (6.3-8.2) g/dL Albumin 4.1 (3.5-5.0) g/dL Disposition Clinical Impression: Left trimalleolar fracture, Status post ORIF of fracture of ankle, Inability to perform activities of daily living Disposition: ADMITTED IP TO THIS [facility] Condition: Stable Referrals: Jan Duarte DO [Primary Care Provider] - 1-2 days Time of Disposition: 10:11
[2022-06-05] MEDS ORDERED: ONDANSETRON 4 MG/2 ML VIAL IVP PRN (11:24)
[2022-06-05] MEDS ORDERED: MELATONIN 3 MG TABLET PO PRN (11:24)
--- NOTE | 2022-06-05 11:34 | P.HPIM ---
History of Present Illness H&P Date: 06/05/22 Chief Complaint: inability to care for yourself Patient is a 52-year-old female with a history of cerebellar ataxia, rheumatoid arthritis, and hypertension who was discharged charged on 06/03 after prolonged hospital stay due to fall and trimalleolar fracture. She was hospitalized from 05/25 through 06/03. She underwent open reduction internal fixation on 06/01/22. Patient seen and examined at bedside. She reports that she went home and was having difficulty ambulating almost falling. An eating too much help from her family. She therefore realize she needed rehab before she fell and broke something else. Things have been difficult given her cerebellar ataxia. She denies any recent cough, cold, fever, flu, nausea, vomiting, diarrhea, dysuria. Pertinent positives and negatives as discussed in HPI, a complete review of systems was performed and all other systems are negative. Vital signs reviewed General: nontoxic, no distress, appears at stated age Derm: warm, dry Head: atraumatic, normocephalic, symmetric Eyes: EOMI, no lid lag, anicteric sclera, pupils equal round reactive to light ENT: Nose and ears atraumatic, no thrush, no pharyngeal erythema Neck: No thyromegaly, no cervical lymphadenopathy, trachea midline, supple Mouth: no lip lesion, mucus membranes moist Cardiovascular: S1S2 reg, no murmur, positive posterior tibial pulse bilateral, no edema, capillary refill less than 2 seconds Lungs: clear to auscultation bilateral, no rhonchi, no rales, no wheeze, no accessory muscle use Abdominal: soft, nontender to palpation, no guarding, no appreciable organomegaly, normal bowel sounds Ext: no gross muscle atrophy, muscle strength muscle strength 5 out of 5 in all 4 extremities, no contractures Neuro: CN II-XII grossly intact, light touch intact all 4 extremities, finger to nose within normal limits,, some slurred speech, had tremors Psych: Alert, oriented, appropriate affect Assessment/Plan: Cerebellar Ataxa with recent fall and trimalleolar fracture Gait instability - plan for PT/OT evaluation and then rehab placement - fall precautions Thrombocytosis - suspect reactive, was normal on discharge - follow CBC HTN, controlled - continue wtih cozar Dyslipidemia - statin Rheumatoid arthritis off immunosupressive agents for 2 weeks post-op. - conter[place] GERD - PPI Transaminitis, at baseline - outpatient follow-up The patient is admitted with an anticipated less than 2 midnight stay for evaluation of [gait instability]. DVT prophylaxis: Lovenox Discussed with: waldo, nursing, ed provider Anticipated discharge date: in AM Anticipated discharge place: [facility] A total of 65 minutes was spent on the care of this complex patient more than 50% of the time was spent in counseling and care coordination. Past Medical History Past Medical History: GERD/Reflux, Hyperlipidemia, Hypertension, Rheumatoid A rthritis (RA) Additional Past Medical History / Comment(s): Neuropathy, cerebellar ataxia History of Any Multi-Drug Resistant Organisms: None Reported Past Surgical History: Section, Orthopedic Surgery Additional Past Surgical History / Comment(s): Knee surgery, shoulder surgery Past Anesthesia/Blood Transfusion Reactions: No Reported Reaction Past Psychological History: No Psychological Hx Reported Smoking Status: Never smoker Past Alcohol Use History: None Reported Past Drug Use History: None Reported - Past Family History family Family Medical History: No Reported History Medications and Allergies Home Medications Medication Instructions Recorded Confirmed Type Atorvastatin [Lipitor] 20 mg PO DAILY 05/25/22 06/05/22 History Cholecalciferol [Vitamin D3 (25 25 mcg PO DAILY 05/25/22 06/05/22 History Mcg = 1000 Iu)] Loratadine 10 mg PO DAILY 05/25/22 06/05/22 History Losartan [Cozaar] 25 mg PO DAILY 05/25/22 06/05/22 History Montelukast [Singulair] 10 mg PO DAILY 05/25/22 06/05/22 History Multivitamins, Thera [Multivitamin 1 tab PO HS 05/25/22 06/05/22 History (formulary)] Omeprazole Magnesium [PriLOSEC OTC] 20 mg PO DAILY 05/25/22 06/05/22 History Turmeric Root Extract [Turmeric] 500 mg PO DAILY 05/25/22 06/05/22 History Upadacitinib [Rinvoq] 15 mg PO DAILY 05/25/22 06/05/22 History diphenhydrAMINE [Benadryl] 25 mg PO HS 05/25/22 06/05/22 History HYDROcodone/APAP 5-325MG [[place] 1 tab PO Q6HR PRN 7 Days #28 tab 05/27/22 06/05/22 Rx 5-325] Naproxen Sodium [Aleve] 220 mg PO DAILY 06/05/22 06/05/22 History Allergies Allergy/AdvReac Type Severity Reaction Status Date / Time Milk Containing Products Allergy Rash/Hives Verified 06/05/22 10:48 [Dairy] Sulfa (Sulfonamide Allergy Rash/Hives Verified 06/05/22 10:48 Antibiotics) wheat AdvReac Rash/Hives Verified 06/05/22 10:48 Physical Exam Osteopathic Statement: *. No significant issues noted on an osteopathic structural exam other than those noted in the History and Physical/Consult. Vitals: Vital Signs Temp Pulse Resp BP Pulse Ox 06/05/22 11:16 18 06/05/22 10:36 97.8 F 98 18 145/87 97 06/05/22 09:18 98.4 F 97 16 156/86 96 Intake and Output 06/04/22 06/05/22 06/05/22 22:59 06:59 14:59 Other: Voiding Method Bedside Commode Weight 90.718 kg Results CBC & Chem 7: 06/05/22 09:37 06/05/22 09:37 Labs: Abnormal Lab Results - Last 24 Hours (Table) 06/05/22 06/05/22 Range/Units 09:37 09:37 Plt Count 526 H (150-450) k/uL Chloride 108 H (98-107) mmol/L BUN 20 H (7-17) mg/dL Glucose 103 H (74-99) mg/dL AST 45 H (14-36) U/L ALT 63 H (4-34) U/L Alkaline Phosphatase 267 H (38-126) U/L Thrombosis Risk Factor Assmnt - Choose All That Apply Each Factor Represents 1 point: Age 41-60 years Thrombosis Risk Factor Assessment Total Risk Factor Score: 1 Thrombosis Risk Factor Assessment Level: Low Risk
[2022-06-05] MEDS: diphenhydrAMINE 25 MG CAP PO SCH (21:01)
[2022-06-06 06:58] LABS: HCT 35.1 % (34.0-46.0); HGB 11.5 gm/dL (11.4-16.0); MCH 32.3 pg (25.0-35.0); MCHC 32.7 g/dL (31.0-37.0); MCV 98.9 fL (80.0-100.0); Mean Platelet Volume 7.5; Platelet Count 503 k/uL (150-450); RBC 3.55 m/uL (3.80-5.40); RDW 13.1 % (11.5-15.5); WBC 5.8 k/uL (3.8-10.6)
[2022-06-06] MEDS: PANTOPRAZOLE 40 MG TABLET PO SCH (08:20)
[2022-06-06] MEDS: MONTELUKAST 10 MG TAB PO SCH (08:20)
[2022-06-06] MEDS: ENOXAPARIN 40 MG/0.4 ML SYRINGE SQ SCH (08:20)
[2022-06-06] MEDS: LORATADINE 10 MG TAB PO SCH (08:20)
[2022-06-06] MEDS: ATORVASTATIN 20 MG TAB PO SCH (08:20)
[2022-06-06] MEDS: LOSARTAN 25 MG TAB PO SCH (08:20)
[2022-06-06] MEDS: NON FORMULARY DRUG (Upadacitinib [Rinvoq] 15 MG Tab.Er.24h) PO SCH (08:21)
--- NOTE | 2022-06-06 10:38 | P.PN ---
Subjective Progress Note Date: 06/06/22 Patient is a 52-year-old female with a history of cerebellar ataxia, rheumatoid arthritis, and hypertension who was discharged charged on 06/03 after prolonged hospital stay due to fall and trimalleolar fracture. She was hospitalized from 05/25 through 06/03. She underwent open reduction internal fixation on 06/01/22. Patient seen and examined at bedside. No chest pain, or shortness of breath,d oing well. No complaints. Vital signs reviewed General: nontoxic, no distress, appears at stated age Derm: warm, dry Head: atraumatic, normocephalic, symmetric Eyes: EOMI, no lid lag, anicteric sclera, pupils equal round reactive to light ENT: Nose and ears atraumatic, no thrush, no pharyngeal erythema Neck: No thyromegaly, no cervical lymphadenopathy, trachea midline, supple Mouth: no lip lesion, mucus membranes moist Cardiovascular: S1S2 reg, no murmur, positive posterior tibial pulse bilateral, no edema, capillary refill less than 2 seconds Lungs: clear to auscultation bilateral, no rhonchi, no rales, no wheeze, no accessory muscle use Abdominal: soft, nontender to palpation, no guarding, no appreciable organomegaly, normal bowel sounds Ext: no gross muscle atrophy, muscle strength muscle strength 5 out of 5 in all 4 extremities, no contractures Neuro: CN II-XII grossly intact, light touch intact all 4 extremities, finger to nose within normal limits,, some slurred speech, had tremors Psych: Alert, oriented, appropriate affect Assessment/Plan: Cerebellar Ataxa with recent fall and trimalleolar fracture Gait instability - plan for PT/OT, toe touch left - fall precautions Thrombocytosis, improving - suspect reactive, was normal on discharge HTN, controlled - continue wtih cozar Dyslipidemia - statin Rheumatoid arthritis off immunosupressive agents for 2 weeks post-op. - conitgale [place] GERD - PPI Transaminitis, at baseline - outpatient follow-up DVT prophylaxis: Lovenox Discussed with: waldo, nursing, case management Anticipated discharge date: in AM Anticipated discharge place: [facility] A total of 25 minutes was spent on the care of this complex patient more than 50% of the time was spent in counseling and care coordination. Objective - Vital Signs Vital signs: Vital Signs Temp 98.5 F 06/06/22 05:28 Pulse 98 07/25/22 05:28 Resp 20 06/06/22 05:28 BP 137/81 06/06/22 05:28 Pulse Ox 93 L 06/06/22 05:28 FiO2 Intake & Output 06/05/22 06/06/22 06/06/22 18:59 06:59 18:59 Intake Total 500 Output Total 200 200 400 Balance -200 300 -400 Weight 90.718 kg Intake: Oral 500 Output: Urine 200 200 400 Other: Voiding Method External Catheter External Catheter # Bowel Movements 1 1 - Labs CBC & Chem 7: 06/06/22 04:35 06/05/22 09:37 Labs: Abnormal Lab Results - Last 24 Hours (Table) 06/06/22 Range/Units 04:35 RBC 3.55 L (3.80-5.40) m/uL Plt Count 503 H (150-450) k/uL
[2022-06-06] MEDS ORDERED: NAPROXEN 250 MG TAB PO SCH (10:45)
[2022-06-06] MEDS ORDERED: NON FORMULARY DRUG (Turmeric Root Extract [Turmeric] 500 MG Tablet) PO SCH (10:45)
[2022-06-06] MEDS: NAPROXEN 250 MG TAB PO SCH (12:03)
[2022-06-06] MEDS: diphenhydrAMINE 25 MG CAP PO SCH (20:53)
[2022-06-07] MEDS: NAPROXEN 250 MG TAB PO SCH (08:00)
[2022-06-07] MEDS: ATORVASTATIN 20 MG TAB PO SCH (08:00)
[2022-06-07] MEDS: LOSARTAN 25 MG TAB PO SCH (08:00)
[2022-06-07] MEDS: PANTOPRAZOLE 40 MG TABLET PO SCH (08:00)
[2022-06-07] MEDS: LORATADINE 10 MG TAB PO SCH (08:01)
[2022-06-07] MEDS: ENOXAPARIN 40 MG/0.4 ML SYRINGE SQ SCH (08:01)
[2022-06-07] MEDS: MONTELUKAST 10 MG TAB PO SCH (08:01)
[2022-06-07] MEDS: NON FORMULARY DRUG (Upadacitinib [Rinvoq] 15 MG Tab.Er.24h) PO SCH (08:17)
--- NOTE | 2022-06-07 14:43 | P.DS ---
Providers Date of admission: 06/05/22 10:01 Expected date of discharge: 06/07/22 Attending physician: Kadie Smith DO Primary care physician: Jan Duarte Hospital Course: Discharge Diagnosis: Cerebellar Ataxa with recent fall and trimalleolar fracture Gait instability Thrombocytosis: improving HTN, controlled Dyslipidemia Rheumatoid arthritis GERD Transaminitis, at baseline Hospital Course: Patient is a 52-year-old female with a history of cerebellar ataxia, rheumatoid arthritis, and hypertension who was discharged charged on 06/03 after prolonged hospital stay due to fall and trimalleolar fracture. She was hospitalized from 05/25 through 06/03. She underwent open reduction internal fixation on 06/01/22. Patient returns to the ED because of inability to take care of herself. Patient will be discharged to rehab. Patient denying any acute complaints. No other acute issues overnight. Patient seen and examined at bedside.[] Vital signs reviewed and stable. General: [non toxic], [no distress], [appears at stated age] Derm: [warm], [dry] Head: [atraumatic], [normocephalic], [symmetric] Eyes: [EOMI], [no lid lag], [anicteric sclera] Mouth: [no lip lesion], [mucus membranes moist] Cardiovascular: [S1S2 reg], [no murmur], [positive posterior tibial pulse bilateral], Lungs: [CTA bilateral], [no rhonchi, no rales] , [no accessory muscle use] Abdominal: [soft], [ nontender to palpation], [no guarding], [no appreciable organomegaly] Ext: [no gross muscle atrophy], [no edema], [no contractures] Neuro: [ CN II-XI grossly intact], [no focal neuro deficits] Psych: [Alert], [oriented], [appropriate affect] A total of [40] minutes of time were spent preparing this complex discharge summary . Patient Condition at Discharge: Stable Plan - Discharge Summary Discharge Rx Participant: No New Discharge Prescriptions: Continue Multivitamins, Thera [Multivitamin (formulary)] 1 tab PO HS Turmeric Root Extract [Turmeric] 500 mg PO DAILY Losartan [Cozaar] 25 mg PO DAILY Atorvastatin [Lipitor] 20 mg PO DAILY HYDROcodone/APAP 5-325MG [[place] 5-325] 1 tab PO Q6HR PRN 7 Days #28 tab PRN Reason: Pain Naproxen Sodium [Aleve] 220 mg PO DAILY Loratadine 10 mg PO DAILY Cholecalciferol [Vitamin D3 (25 Mcg = 1000 Iu)] 25 mcg PO DAILY Upadacitinib [Rinvoq] 15 mg PO DAILY Omeprazole Magnesium [PriLOSEC OTC] 20 mg PO DAILY Montelukast [Singulair] 10 mg PO DAILY diphenhydrAMINE [Benadryl] 25 mg PO HS Discharge Medication List Atorvastatin [Lipitor] 20 mg PO DAILY 05/25/22 [History] Cholecalciferol [Vitamin D3 (25 Mcg = 1000 Iu)] 25 mcg PO DAILY 05/25/22 [History] Loratadine 10 mg PO DAILY 05/25/22 [History] Losartan [Cozaar] 25 mg PO DAILY 05/25/22 [History] Montelukast [Singulair] 10 mg PO DAILY 05/25/22 [History] Multivitamins, Thera [Multivitamin (formulary)] 1 tab PO HS 05/25/22 [History] Omeprazole Magnesium [PriLOSEC OTC] 20 mg PO DAILY 05/25/22 [History] Turmeric Root Extract [Turmeric] 500 mg PO DAILY 05/25/22 [History] Upadacitinib [Rinvoq] 15 mg PO DAILY 05/25/22 [History] diphenhydrAMINE [Benadryl] 25 mg PO HS 05/25/22 [History] HYDROcodone/APAP 5-325MG [[place] 5-325] 1 tab PO Q6HR PRN 7 Days #28 tab 05/27/22 [Rx] Naproxen Sodium [Aleve] 220 mg PO DAILY 06/05/22 [History] Follow up Appointment(s)/Referral(s): Shanice Mota PAC [PHYSICIAN FRANCHISE SALES REPRESENTATIVE] - 06/16/22 2:45 pm Jan Duarte DO [Primary Care Provider] - 1-2 days Activity/Diet/Wound Care/Special Instructions: Pt to continue to wear splint to lt ankle. Discharge Disposition: TRANSFER TO SNF/ECF
--- NOTE | 2022-06-07 15:03 | XR ---
EXAMINATION TYPE: XR ankle complete LT DATE OF EXAM: 06/07/2022 COMPARISON: Left ankle fluoroscopy 06/01/2022, left ankle radiograph 05/25/2022 HISTORY: Pain TECHNIQUE: Frontal, lateral, and oblique views of the left ankle were obtained. FINDINGS: Postsurgical changes with 2 fixation screws involving the right medial malleolus and a plat e with fixation screws involving the distal left fibula and lateral malleolus. This bridges the trima lleolar fracture. No calcification demonstrated at this time. Hardware appears intact with appropriat e alignment. Ankle mortise is in appropriate position. Skin lazara demonstrated along the lateral an kle. No definitive subcutaneous gas. IMPRESSION: Postsurgical changes with fixation hardware involving trimalleolar fracture. Hardware appears intact and in appropriate position.
[2022-06-07] MEDS: diphenhydrAMINE 25 MG CAP PO SCH (20:21)
[2022-06-08] MEDS: ENOXAPARIN 40 MG/0.4 ML SYRINGE SQ SCH (08:04)
[2022-06-08] MEDS: MONTELUKAST 10 MG TAB PO SCH (08:04)
[2022-06-08] MEDS: ATORVASTATIN 20 MG TAB PO SCH (08:04)
[2022-06-08] MEDS: PANTOPRAZOLE 40 MG TABLET PO SCH (08:04)
[2022-06-08] MEDS: LOSARTAN 25 MG TAB PO SCH (08:04)
[2022-06-08] MEDS: NAPROXEN 250 MG TAB PO SCH (08:04)
[2022-06-08] MEDS: LORATADINE 10 MG TAB PO SCH (08:04)
[2022-06-08] MEDS: NON FORMULARY DRUG (Upadacitinib [Rinvoq] 15 MG Tab.Er.24h) PO SCH (08:05)
--- NOTE | 2022-06-08 11:39 | P.PN ---
Subjective Progress Note Date: 06/08/22 Patient denies any acute complaints. No acute issues overnight. 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 - conitnue Aleve GERD - PPI Transaminitis, at baseline - outpatient follow-up Patient medically stable for discharge. Awaiting for prior authorization so that patient can go to residential facility DVT prophylaxis: Lovenox Discussed with: waldo, nursing, case management Anticipated discharge date: in AM Anticipated discharge place: SNF A total of 25 minutes was spent on the care of this complex patient more than 50% of the time was spent in counseling and care coordination.
--- NOTE | 2022-06-08 11:39 | P.PN ---
Subjective Progress Note Date: 06/08/22 Patient denies any acute complaints. No acute issues overnight. 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 - conitnue Aleve GERD - PPI Transaminitis, at baseline - outpatient follow-up Patient medically stable for discharge. Awaiting for prior authorization so that patient can go to [facility] facility DVT prophylaxis: Lovenox Discussed with: waldo, nursing, case management Anticipated discharge date: in AM Anticipated discharge place: SNF A total of 25 minutes was spent on the care of this complex patient more than 50% of the time was spent in counseling and care coordination.
[2022-06-08 11:54] VITALS: BP 116/80; PULSE 91; RESP 17; TEMP 98.3
--- NOTE | 2022-06-08 14:26 | P.DS ---
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 She was hospitalized from 05/25 through 06/03. She underwent open reduction internal fixation on 06/01/22. Patient returns to the ED because of inability to take care of herself. Patient will be discharged to rehab. Patient denying any acute complaints. No other acute issues overnight. Patient seen and examined at bedside.[] Vital signs reviewed and stable. General: [non toxic], [no distress], [appears at stated age] Derm: [warm], [dry] Head: [atraumatic], [normocephalic], [symmetric] Eyes: [EOMI], [no lid lag], [anicteric sclera] Mouth: [no lip lesion], [mucus membranes moist] Cardiovascular: [S1S2 reg], [no murmur], [positive posterior tibial pulse bilateral], Lungs: [CTA bilateral], [no rhonchi, no rales] , [no accessory muscle use] Abdominal: [soft], [ nontender to palpation], [no guarding], [no appreciable organomegaly] Ext: [no gross muscle atrophy], [no edema], [no contractures] Neuro: [ CN II-XI grossly intact], [no focal neuro deficits] Psych: [Alert], [oriented], [appropriate affect] A total of [40] minutes of time were spent preparing this complex discharge summary . Patient Condition at Discharge: Stable Plan - Discharge Summary Discharge Rx Participant: No New Discharge Prescriptions: Continue Multivitamins, Thera [Multivitamin (formulary)] 1 tab PO HS Turmeric Root Extract [Turmeric] 500 mg PO DAILY Losartan [Cozaar] 25 mg PO DAILY Atorvastatin [Lipitor] 20 mg PO DAILY HYDROcodone/APAP 5-325MG [Vancleave 5-325] 1 tab PO Q6HR PRN 7 Days #28 tab PRN Reason: Pain Naproxen Sodium [Aleve] 220 mg PO DAILY Loratadine 10 mg PO DAILY Cholecalciferol [Vitamin D3 (25 Mcg = 1000 Iu)] 25 mcg PO DAILY Upadacitinib [Rinvoq] 15 mg PO DAILY Omeprazole Magnesium [PriLOSEC OTC] 20 mg PO DAILY Montelukast [Singulair] 10 mg PO DAILY diphenhydrAMINE [Benadryl] 25 mg PO HS Discharge Medication List Atorvastatin [Lipitor] 20 mg PO DAILY 05/25/22 [History] Cholecalciferol [Vitamin D3 (25 Mcg = 1000 Iu)] 25 mcg PO DAILY 05/25/22 [History] Loratadine 10 mg PO DAILY 05/25/22 [History] Losartan [Cozaar] 25 mg PO DAILY 05/25/22 [History] Montelukast [Singulair] 10 mg PO DAILY 05/25/22 [History] Multivitamins, Thera [Multivitamin (formulary)] 1 tab PO HS 05/25/22 [History] Omeprazole Magnesium [PriLOSEC OTC] 20 mg PO DAILY 05/25/22 [History] Turmeric Root Extract [Turmeric] 500 mg PO DAILY 05/25/22 [History] Upadacitinib [Rinvoq] 15 mg PO DAILY 05/25/22 [History] diphenhydrAMINE [Benadryl] 25 mg PO HS 05/25/22 [History] HYDROcodone/APAP 5-325MG [Vancleave 5-325] 1 tab PO Q6HR PRN 7 Days #28 tab 05/27/22 [Rx] Naproxen Sodium [Aleve] 220 mg PO DAILY 06/05/22 [History] Follow up Appointment(s)/Referral(s): Shanice Mota PAC [PHYSICIAN MULTIPLEX OPERATOR] - 06/16/22 2:45 pm Jan Durate DO [Primary Care Provider] - 1-2 days (PLease call and make follow up appointment .) Activity/Diet/Wound Care/Special Instructions: Pt to continue to wear splint to lt ankle. Discharge Disposition: TRANSFER TO SNF/ECF
== END 2022-06-08 16:24 ==
LOC: EC 09:15 → 5NMEDONC 10:01
PROVIDERS: ADMIT Internal Medicine; ATTEND Internal Medicine
DX: S82.852D Displaced trimalleolar fracture of left lower leg, subsequent encounter for closed fracture with routine healing (principal); G11.9 Hereditary ataxia, unspecified; I10 Essential (primary) hypertension; G62.9 Polyneuropathy, unspecified; M06.9 Rheumatoid arthritis, unspecified; D75.839 Thrombocytosis, unspecified; E78.5 Hyperlipidemia, unspecified; K21.9 Gastro-esophageal reflux disease without esophagitis; R74.01 Elevation of levels of liver transaminase levels; Z79.899 Other long term (current) drug therapy; Z79.82 Long term (current) use of aspirin; Z88.2 Allergy status to sulfonamides; Z75.1 Person awaiting admission to adequate facility elsewhere; W19.XXXD Unspecified fall, subsequent encounter
CPT/HCPCS: 96372 ×3; 99284; 36415; 97530 ×2; 97162; 97166; 80053; 85025; 85027; 73610; G0378 ×4; J1650 ×3

== ENCOUNTER → 2023-08-03 | Outpatient (CLI) | payer BC ==
--- NOTE | 2023-08-04 09:07 | MM ---
Reason for Exam: Screening (asymptomatic). Last mammogram was performed 2 year(s) and 10 month(s) ago. Patient History: Menarche at age 11. First Full-Term at age 33. Late child-bearing (after 30). Postmenopausal. Hormonal Contraceptives, starting at age 42 for 1 year. Maternal cousin had breast cancer, age 48. Risk Values: Ivette 5 year model risk: 1.9%. NCI Lifetime model risk: 10.2%. Prior Study Comparison: 04/07/2009 Right Diagnostic Mammogram, [facility]. 12/12/2011 Bilateral Diagnostic Mammogram, [facility]. 10/05/2020 Bilateral Screening Mammogram, [facility]. Tissue Density: There are scattered fibroglandular densities. Findings: Analyzed By CAD. There is no suspicious group of microcalcifications or new suspicious mass in either breast. Benign-appearing calcifications. Overall Assessment: Benign, BI-RAD 2 Management: Screening Mammogram of both breasts in 1 year. . Patient should continue monthly self-breast exams. A clinical breast exam by your physician is recommended on an annual basis. This exam should not preclude additional follow-up of suspicious palpable abnormalities. Note on Ivette scores and lifetime risk: 1. A Ivette score greater than 3% is considered moderate risk. If this is the case, consider specialist referral to assess eligibility for a risk reducing agent. 2. If overall lifetime risk for the development of breast cancer is 20% or higher, the patient may qualify for future screening with alternating mammogram and breast MRI. Electronically signed and approved by: Otto Eckert M.D. Radiologis
--- NOTE | 2023-08-04 11:13 | BD ---
EXAMINATION TYPE: Axial Bone Density DATE OF EXAM: 08/03/2023 CLINICAL HISTORY: 57 years old Female. ICD-10 CODE: M80.00XA AGE-REL OSTEOPOR W CURRE Height: 64.2 in Weight: 225 lbs FRAX RISK QUESTIONS: History of Fracture in Adulthood: lt shoulder age 52; lt age 56 Secondary Osteoporosis: 3. Menopause before 45: age 44 Rheumatoid Arthritis: yes RISK FACTORS HISTORY OF: Family History of Osteoporosis: yes mother Active: very limited Diet low in dairy products/other sources of calcium: yes Postmenopausal woman: age 44 Lost more than 2 inches in height since high school: yes 3" MEDICATIONS: Additional Medications: calcium, vit d, blood pressure meds, cholesterol meds, rheumatoid arthritis m eds, EXAM MEASUREMENTS: Bone mineral densitometry was performed using the [employer] System. Bone mineral density as measured about the Lumbar spine is: ----- L1-L4(G/cm2): 0.975 T Score Values are as follows: ----- L1: -2.3 ----- L2: -1.8 ----- L3: -1.2 ----- L4: 1.7 ----- L1-L4: -1.7 Z Score Values are as follows: ----- L1: -2.3 ----- L2: -1.8 ----- L3: -1.2 ----- L4: -1.7 ----- L1-L4: -1.7 Bone mineral density has: Decreased -6.3% since study of: 10/05/2020 Bone mineral density about the R hip (g/cm2): 0.898 Bone mineral density about the L hip (g/cm2): 0.842 T Score values are as follows: -----R Neck: -1.0 -----L Neck: -1.3 -----R Total: -0.9 -----L Total: -1.3 Z Score values are as follows: -----R Neck: -0.5 -----L Neck: -0.8 -----R Total: -0.8 -----L Total: -1.2 Bone mineral density has: Decreased -2.1% since study of: 10/05/2020 FRAX%s: The graph provided illustrates a 14.9% chance for a major osteoporotic fx and a 1.2% chance f or the hips probability for fx in 10 years time. IMPRESSION: Osteopenia (T Score between -2.5 and -1). There is slightly increased risk of fracture and the patient may be considered for treatment. Re-Screen 2-5 years. NOTE: T-SCORE=SD OF THE YOUNG ADULT MEAN.
== END | disposition home or self-care (01) ==
LOC: RADBDWWP 14:08
PROVIDERS: ATTEND Family Medicine
DX: Z12.31 Encounter for screening mammogram for malignant neoplasm of breast (principal); M80.00XA Age-related osteoporosis with current pathological fracture, unspecified site, initial encounter for fracture; M85.89 Other specified disorders of bone density and structure, multiple sites; Z78.0 Asymptomatic menopausal state; Z80.3 Family history of malignant neoplasm of breast
CPT/HCPCS: 77063; 77067; 77080